=== PATIENT | female | born 1945 | race Caucasian/White ===

== ENCOUNTER 2017-11-01 10:33 | Emergency (ER) | payer MEDICARE, OTHER ==
[~2017-11-01] VITALS: Ht 149.9 cm; Wt 70.0 kg
[~2017-11-01 10:33] MED LIST: APIX5TAB PO; FOLI1TAB PO; FURO1TAB93 PO; ISOS30 PO; LEVO25TA36 PO; METO25CR PO; MULT1TAB46 PO; POTA-243 PO; PRAV40TA PO; PRED20 PO; RANI300T PO; REST0.05 EACH EYE; TELM5TAB PO
[2017-11-01 10:35] VITALS: BP 154/86; PULSE 71; RESP 16; TEMP 98.4; O2SAT 96
[2017-11-01] MEDS ORDERED: POTA-163 PO (10:58)
[2017-11-01] MEDS ORDERED: CALC1TAB87 PO (10:58)
[2017-11-01] MEDS ORDERED: PRAV20TA2 PO (10:58)
[2017-11-01] MEDS ORDERED: LEVO25TA4 PO (10:58)
[2017-11-01] MEDS ORDERED: TRAZ50TA12 PO (10:58)
[2017-11-01] MEDS ORDERED: METO25TA3 PO (10:58)
[2017-11-01] MEDS ORDERED: APIX5TAB PO (10:58)
[2017-11-01] MEDS ORDERED: RANI150T PO (10:58)
[2017-11-01] MEDS ORDERED: [UNRECOGNIZED DRUG - OTHER] PO (10:58)
[2017-11-01] MEDS ORDERED: TORS20TA PO (10:58)
--- NOTE | 2017-11-01 11:17 | PD ---
HPI Chief Complaint: Fall Time Seen by Provider: 11:01 Travel History International Travel<30 days: No Contact w/Intl Traveler<30days: No Traveled to known affect area: No History of Present Illness HPI This 72-year-old female had a fall around 6:00 last night. She fell off the second wrong of a kitchen ladder and hit the right side of her head and shoulder. She doesn't think she had loss of consciousness but she is not sure. She has been told she may have von Willebrand's disease. She has noticed extensive bruising on the right side of her head an she is also having pain in the area of the right trapezius and the right shoulder. PFSH Past Medical History Anemia: Yes (AUTOIMMUNE HEMOLYTIC) Asthma: No Atrial Fibrillation: Yes Autoimmune Disease: Yes Anxiety: Yes Depression: No Heart Rhythm Problems: Yes (HEART PALPATIONS) Cancer: No Cardiovascular Problems: Yes High Cholesterol: Yes Chest Pain: No COPD: Yes Cerebrovascular Accident: No Diabetes: No Diminished Hearing: No Gastrointestinal Disorders: Yes (moderate level of GERD) GERD: Yes Genitourinary: Yes Headaches: No Hypertension: Yes Immune Disorder: Yes Implanted Vascular Access Dvce: No Kidney Stones: No Musculoskeletal: Yes Neurologic: Yes Psychiatric: Yes Reproductive: No Respiratory: Yes Migraines: Yes (years ago, no long have) Renal Failure: No Seizures: No Sickle Cell Disease: No Sleep Apnea: Yes (sleep with CPAP) Thyroid Disease: Yes Ulcer: No ?: Not Past Surgical History Abdominal Surgery: No AICD: No Arteriovenous Shunt: No Cardiac Surgery: No Ear Surgery: No Endocrine Surgery: No Eye Surgery: No Genitourinary Surgery: No Gynecologic Surgery: Yes (hysto) Hysterectomy: Yes Insulin Pump: No Joint Replacement: No Neurologic Surgery: No Oral Surgery: No Pacemaker: No Thoracic Surgery: No Other Surgery: Yes Social History Alcohol Use: Yes (DAILY) Tobacco Use: No Substance Use: No Allergies-Medications (Allergen,Severity, Reaction): Coded Allergies: codeine (Unverified Allergy, Severe, HIVES, 11/01/17) hydrocodone (Unverified Allergy, Severe, Itching, 11/01/17) propafenone (Unverified Allergy, Unknown, DOESN'T REMEMBER, 11/01/17) propranolol (Unverified Allergy, Unknown, DOESN'T REMEMBER, 11/01/17) furosemide (Unverified Adverse Reaction, Severe, Cramping, 11/01/17) Reported Meds & Prescriptions Reported Meds & Active Scripts Active Reported Trazodone (Trazodone HCl) 50 Mg Tab 50 Mg PO HS Pravastatin 20 Mg Tab 20 Mg PO DAILY Ranitidine (Ranitidine HCl) 150 Mg Tab 150 Mg PO DAILY 5-Hydroxytryptophan 100 Mg Cap 100 Mg PO BID Eliquis (Apixaban) 5 Mg Tab 5 Mg PO BID Calcium 600 with Vitamin D (Calcium Carbonate-Cholecalciferol) 600-400 mg-Unit Tab 1 Tab PO DAILY Potassium Chloride ER (Potassium Chloride) 20 Meq Tab 20 Meq PO DAILY Torsemide 20 Mg Tab 20 Mg PO BID Metoprolol Tartrate 25 Mg Tab 25 Mg PO DAILY Levothyroxine (Levothyroxine Sodium) 25 Mcg Tab 25 Mcg PO DAILY Review of Systems General / Constitutional: No: Fever, Chills Eyes: No: Diploplia, Blurred Vision HENT: No: Headaches, Vertigo Cardiovascular: No: Chest Pain or Discomfort, Palpitations Respiratory: No: Cough, Shortness of Breath Gastrointestinal: No: Nausea, Vomiting Genitourinary: No: Urgency Musculoskeletal: Positive: Myalgias Endocrine: No: Heat Intolerance, Cold Intolerance Hematologic/Lymphatic: Positive: Easy Bruising Physical Exam Narrative GENERAL: Well-developed female SKIN: Focused skin assessment warm/dry. HEAD: . Normocephalic. His extensive ecchymosis on the right side of the forehead EYES: Pupils equal and round. No scleral icterus. No injection or drainage. There is a right periorbital hematoma and bruising in the area of the zygoma on the right. She has some tenderness to palpation of the zygomatic arch and mandibular condyle on the right ENT: No nasal bleeding or discharge. Mucous membranes pink and moist. NECK: Trachea midline. No JVD. CARDIOVASCULAR: Regular rate and rhythm. No murmur appreciated. RESPIRATORY: No accessory muscle use. Clear to auscultation. Breath sounds equal bilaterally. There is some tenderness in the area of the right trapezius muscle and also the right distal clavicle and acromioclavicular joint GASTROINTESTINAL: Abdomen soft, non-tender, nondistended. Hepatic and splenic margins not palpable. MUSCULOSKELETAL: No obvious deformities. No clubbing. No cyanosis. No edema. NEUROLOGICAL: Awake and alert. No obvious cranial nerve deficits. Motor grossly within normal limits. Normal speech. PSYCHIATRIC: Appropriate mood and affect; insight and judgment normal. Data Data Last Documented VS Vital Signs Date Time Temp Pulse Resp B/P (MAP) Pulse Ox O2 Delivery O2 Flow Rate FiO2 11/01/17 10:35 98.4 71 16 154/86 (108) 96 Orders Orders Shoulder, Complete (>2vws) (11/01/17 11:10) Chest, Single Ap (11/01/17 11:10) Ct Brain W/O Iv Contrast(Rout) (11/01/17 11:10) Ct Cerv Spine W/O Contrast (11/01/17 11:10) Ct Facial Bones W/O Iv Cont (11/01/17 11:10) MDM Medical Decision Making Medical Screen Exam Complete: Yes Emergency Medical Condition: Yes Medical Record Reviewed: Yes Differential Diagnosis Differential includes fractured shoulder, fractured clavicle, contusion, fractured mandible, fractured zygoma, intracranial hemorrhage Narrative Course Plain x-ray shows fracture of the distal portion of the right clavicle. It is noted that there is a focal radiolucency and is recommended that pathologic fracture needs to be excluded. Chest x-ray is negative. CT scans of the head and facial bones and cervical spine are negative for acute fracture. Patient is stable for discharge Diagnosis Primary Impression: Fx clavicle Qualified Codes: S42.034A - Nondisplaced fracture of lateral end of right clavicle, initial encounter for closed fracture Additional Instructions: Follow-up with your own medical doctor regarding fractured clavicle Disposition: 01 DISCHARGE HOME Condition: Stable Christian Mesa MD Nov 01, 2017 11:17
--- NOTE | 2017-11-01 12:02 | RADRPT ---
EXAM DATE/TIME: 11/01/2017 11:27 [facility] COMPARISON: CHEST SINGLE AP, June 17, 2016, 13:07. INDICATIONS : Short of breath MEDICAL HISTORY : Gastroesophageal reflux disease. Cardiovascular disease SURGICAL HISTORY : None. ENCOUNTER: Initial ACUITY: 1 day PAIN SCORE: 0/10 LOCATION: Bilateral chest FINDINGS: A single view of the chest demonstrates the lungs to be symmetrically aerated without evidence of mas s, infiltrate or effusion. The cardiomediastinal contours are unremarkable. Osseous structures are intact. CONCLUSION: No acute disease. Rodrigo Chandler MD on November 01, 2017 at 12:00 Board Certified Radiologist. This report was verified electronically.
--- NOTE | 2017-11-01 12:06 | RADRPT ---
EXAM DATE/TIME: 11/01/2017 11:27 [facility] COMPARISON: No previous studies available for comparison. INDICATIONS : Right shoulder pain MEDICAL HISTORY : Gastroesophageal reflux disease. Cardiovascular disease SURGICAL HISTORY : None. ENCOUNTER: Initial ACUITY: 1 day PAIN SCORE: 5/10 LOCATION: Right Shoulder FINDINGS: Multiple view examination of the right shoulder demonstrates significant focal radiolucency in the la teral clavicle with evidence of focal erosion along the superior cortical margin. The glenohumeral joint is intact without evidence of fracture or dislocation. Adjacent ribs appear in tact. CONCLUSION: Focal radiolucency with cortical disruption involving the lateral right clavicle. Pathologic fracture needs to be excluded. Rodrigo Chandler MD on November 01, 2017 at 12:02 Board Certified Radiologist. This report was verified electronically.
--- NOTE | 2017-11-01 12:38 | RADRPT ---
EXAM DATE/TIME: 11/01/2017 12:14 [facility] COMPARISON: CT FACIAL BONES W/O CONTRAST, November 01, 2017, 12:14. INDICATIONS : Tripped and fell last night. Right facial pain and bruising. RADIATION DOSE: 56.99 CTDIvol (mGy) MEDICAL HISTORY : Hypertension. Chronic obstructive pulmonary disease. Gastroesophageal reflux disease.Anticoagulant th erapy. SURGICAL HISTORY : Hysterectomy. ENCOUNTER: Initial ACUITY: 2 days PAIN SCALE: 6/10 LOCATION: Right cranial TECHNIQUE: Multiple contiguous axial images were obtained of the head. Using automated exposure control and adj ustment of the mA and/or kV according to patient size, radiation dose was kept as low as reasonably a chievable to obtain optimal diagnostic quality images. DICOM format image data is available electro nically for review and comparison. FINDINGS: CEREBRUM: The ventricles are normal for age. No evidence of midline shift, mass lesion, hemorrhage or acute in farction. No extra-axial fluid collections are seen. POSTERIOR FOSSA: The cerebellum and brainstem are intact. The 4th ventricle is midline. The cerebellopontine angle i s unremarkable. EXTRACRANIAL: The visualized portion of the orbits is intact. Mild subgaleal hematoma is noted involving the right frontoparietal region. SKULL: The calvaria is intact. No evidence of skull fracture. CONCLUSION: 1. No acute intracranial abnormality. 2. Mild subgaleal hematoma involving the right frontoparietal region. Trevon Grady MD on November 01, 2017 at 12:34 Board Certified Radiologist. This report was verified electronically.
--- NOTE | 2017-11-01 12:45 | RADRPT ---
EXAM DATE/TIME: 11/01/2017 12:14 [facility] COMPARISON: No previous studies available for comparison. INDICATIONS : Tripped and fell last night. Right sided pain. RADIATION DOSE: 26.61 CTDIvol (mGy) MEDICAL HISTORY : Hypertension. Chronic obstructive pulmonary disease. Gastroesophageal reflux disease. SURGICAL HISTORY : Hysterectomy. ENCOUNTER: Initial ACUITY: 2 days PAIN SCALE: 7/10 LOCATION: Right neck TECHNIQUE: Volumetric scanning of the cervical spine was performed. Multiplanar reconstructions in the sagittal, coronal and oblique axial planes were performed. Using automated exposure control and adjustment o f the mA and/or kV according to patient size, radiation dose was kept as low as reasonably achievable to obtain optimal diagnostic quality images. DICOM format image data is available electronically f or review and comparison. FINDINGS: There is no acute fracture or prevertebral soft tissue swelling. Diffuse cervical spondylosis is note d at all levels. Minimal spinal stenosis is noted at C5-6. Moderate bilateral neural foraminal narrow ing is noted at C4-5, C5-6 and C6-7. The bony relationship in alignment between C1 and C2 is well loren ntained. CONCLUSION: 1. No acute fracture or prevertebral soft tissue swelling. 2. Minimal spinal stenosis at C5-6. 3. Moderate bilateral foraminal narrowing at C4-5 and C5-6 and C6-7. 4. Diffuse cervical spondylosis. Trevon Grady MD on November 01, 2017 at 12:38 Board Certified Radiologist. This report was verified electronically.
--- NOTE | 2017-11-01 12:55 | RADRPT ---
EXAM DATE/TIME: 11/01/2017 12:14 [facility] COMPARISON: No previous studies available for comparison. INDICATIONS : Tripped and fell last night. Right facial pain and bruising. RADIATION DOSE: 25.68 CTDIvol (mGy) MEDICAL HISTORY : Hypertension. Chronic obstructive pulmonary disease. Gastroesophageal reflux disease. SURGICAL HISTORY : Hysterectomy. ENCOUNTER: Initial ACUITY: 2 days PAIN SCORE: 7/10 LOCATION: Right facial TECHNIQUE: Volumetric scanning of the facial bones was performed. Using automated exposure control and adjustme nt of the mA and/or kV according to patient size, radiation dose was kept as low as reasonably achiev able to obtain optimal diagnostic quality images. DICOM format image data is available [employer] y for review and comparison. FINDINGS: ORBITS: The orbital and infraorbital osseous structures are intact. The retroconal structures have a normal configuration. No radiopaque foreign bodies are seen. NASAL BONE: The nasal bone and maxillary spine are intact ZYGOMATIC ARCHES: Symmetric without evidence of fracture. Mild soft tissue swelling is noted overlying the right zygoma tic arch and zygoma. SINUSES: Mild mucosal thickening is noted within the left maxillary sinus. The ethmoid and frontal sinuses are intact. No air-fluid levels seen. NASAL CAVITY: Nasoseptal deviation to the left is noted. The lacrimal ducts are intact. SOFT TISSUES: No radiopaque foreign bodies seen. Mild soft tissue swelling is noted involving the upper right cheek . INTRACRANIAL: No intracranial air seen. CRIBIFORM PLATE: Grossly intact. CONCLUSION: 1. No acute facial bone fracture. 2. Nasal septal deviation to the left. 3. Mild mucosal thickening involving the left maxillary sinus. 4. Mild soft tissue swelling overlying the right zygoma and zygomatic arch. Trevon Grady MD on November 01, 2017 at 12:51 Board Certified Radiologist. This report was verified electronically.
[2017-11-01 13:36] VITALS: BP 110/77; PULSE 66; RESP 16; TEMP 98.3
== END 2017-11-01 14:12 | disposition home or self-care (01) ==
LOC: PHED 10:33
DX: S42.034A Nondisplaced fracture of lateral end of right clavicle, initial encounter for closed fracture (principal); E78.00 Pure hypercholesterolemia, unspecified; I10 Essential (primary) hypertension; I48.91 Unspecified atrial fibrillation; W11.XXXA Fall on and from ladder, initial encounter; Z79.01 Long term (current) use of anticoagulants
CPT/HCPCS: 70450; 70486; 71010; 72125; 73030; 99285

== ENCOUNTER 2018-04-16 12:55 | Emergency (ER) | payer MEDICARE, OTHER ==
[~2018-04-16] VITALS: Ht 162.6 cm; Wt 64.0 kg
[~2018-04-16 12:55] MED LIST changes: +CALC1TAB87 PO; -FOLI1TAB PO; -FURO1TAB93 PO; -ISOS30 PO; -LEVO25TA36 PO; +LEVO25TA4 PO; -METO25CR PO; +METO25TA3 PO; -MULT1TAB46 PO; +POTA-163 PO; -POTA-243 PO; +PRAV20TA2 PO; -PRAV40TA PO; -PRED20 PO; +RANI150T PO; -RANI300T PO; -REST0.05 EACH EYE; -TELM5TAB PO; +TORS20TA PO; +TRAZ50TA12 PO; +[UNRECOGNIZED DRUG - OTHER] PO
[2018-04-16] MEDS ORDERED: SODIUM CHLORIDE 0.9% FLUSH 10 ML FLUSH IVF PRN (13:00)
[2018-04-16 13:02] VITALS: BP 105/55; PULSE 62; RESP 19; TEMP 98.7; O2SAT 94
[2018-04-16 13:15] VITALS: O2SAT 95
[2018-04-16] MEDS ORDERED: REST0.05 EACH EYE (13:17)
[2018-04-16] MEDS ORDERED: METO1TAB42 PO (13:17)
[2018-04-16] MEDS ORDERED: RANI300T PO (13:17)
[2018-04-16] MEDS ORDERED: NAPR220C22 PO (13:17)
[2018-04-16 13:34] LABS: AUTOMATED NEUTROPHIL # 16.1 TH/MM3 (1.8-7.7); BASOPHIL # 0.1 TH/MM3 (0-0.2); BASOPHIL % 0.5 % (0.0-2.0); EOSINOPHIL # 0.1 TH/MM3 (0-0.4); EOSINOPHIL % 0.3 % (0.0-4.0); HEMATOCRIT 37.2 % (35.0-46.0); HEMOGLOBIN 12.4 GM/DL (11.6-15.3); LYMPH % 2.8 % (9.0-44.0); LYMPHOCYTE # 0.5 TH/MM3 (1.0-4.8); MEAN CELL VOLUME 92.6 FL (80.0-100.0); MEAN CORPUSCULAR HGB CONC 33.4 % (32.0-36.0); MEAN PLATELET VOLUME 6.7 FL (7.0-11.0); MONO % 2.1 % (0.0-8.0); MONOCYTE # 0.4 TH/MM3 (0-0.9); NEUT % 94.3 % (16.0-70.0); PLATELET COUNT 317 TH/MM3 (150-450); RED BLOOD COUNT 4.02 MIL/MM3 (4.00-5.30); RED CELL DISTRIBUTION WIDTH 13.7 % (11.6-17.2); WHITE BLOOD COUNT 17.1 TH/MM3 (4.0-11.0)
[2018-04-16 13:43] LABS: INTERNATIONAL NORMALIZED RATIO 1.3 RATIO; PROTHROMBIN TIME - PATIENT 12.9 SEC (9.8-11.6)
[2018-04-16 13:53] LABS: ALBUMIN 3.1 GM/DL (3.4-5.0); ALT (GPT) 56 U/L (10-53); AST (GOT) 49 U/L (15-37); BICARBONATE 24.9 MEQ/L (21.0-32.0); BLOOD UREA NITROGEN 11 MG/DL (7-18); CHLORIDE 101 MEQ/L (98-107); CREATININE 0.68 MG/DL (0.50-1.00); GLOMERULAR FILTRATION RATE 85 ML/MIN (>89); GLUCOSE,RANDOM 91 MG/DL (74-106); MAGNESIUM 1.8 MG/DL (1.5-2.5); SODIUM (NA) 138 MEQ/L (136-145)
[2018-04-16 13:57] LABS: ALKALINE PHOSPHATASE 482 U/L (45-117); TOTAL BILIRUBIN ADULT 0.5 MG/DL (0.2-1.0); TOTAL PROTEIN 6.3 GM/DL (6.4-8.2); TROPONIN I LESS THAN 0.02 NG/ML (0.02-0.05)
--- NOTE | 2018-04-16 14:08 | RADRPT ---
EXAM DATE: 04/16/2018 1:58 PM EDT AGE/SEX: 72 years / Female INDICATIONS: Chest pain. CLINICAL DATA: This is the patient's initial encounter. Patient reports that signs and symptoms have been present for 1 day and indicates a pain score of 0/10. MEDICAL/SURGICAL HISTORY: Gastroesophageal reflux disease. Cardiovascular disease. None. COMPARISON: [facility], CHEST SINGLE AP, 11/01/2017. . FINDINGS: PA and lateral views of the chest demonstrate the lungs to be aerated without evidence of mass, infi ltrate or effusion. There is persistent stable elevation of the right hemidiaphragm. The cardiomedias tinal contours are unremarkable and stable. There are degenerative changes involving the thoracic spi ne. There is chronic appearing loss of height of several vertebral bodies.. No significant changes wi th the appearance of the heart or lungs compared to the prior study.. CONCLUSION: No acute intrathoracic disease. Stable examination. Electronically signed by: Miko Gabriel MD 04/16/2018 2:07 PM EDT
--- NOTE | 2018-04-16 14:10 | PD ---
HPI Chief Complaint: Cardiac Complaint Time Seen by Provider: 12:58 Travel History International Travel<30 days: No Contact w/Intl Traveler<30days: No Traveled to known affect area: No History of Present Illness HPI The patient is a 72-year-old female who presents to the emergency department via EMS for atrial fibrillation with RVR. The patient has a history of paroxysmal atrial fibrillation with RVR and is currently on metoprolol as well as Eliquis. The patient is followed by her power line installer and repairer, Dr. Lindquist. The patient was at home earlier today when she developed atrial fibrillation with RVR. The patient felt like her heart was racing, developed some sub- sternal chest discomfort which radiated to the neck and right arm. She states these are her typical symptoms when she has A. fib with RVR. The patient states she has had a nuclear medicine stress test in the past as well as an echocardiogram in the past. 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 The patient was administered Cardizem 20 mg and she will be by EMS prior to arrival and converted to a sinus rhythm. The patient is currently asymptomatic and denies any chest pain or shortness of breath upon arrival. She denies any associated nausea, vomiting, or diaphoresis. Symptoms are moderate. PFSH Past Medical History Hx Anticoagulant Therapy: Yes (ELIQUIS) Anemia: Yes (AUTOIMMUNE HEMOLYTIC) Asthma: No Atrial Fibrillation: Yes Autoimmune Disease: Yes Anxiety: Yes Depression: No Heart Rhythm Problems: Yes (HEART PALPATIONS) Cancer: No Cardiovascular Problems: Yes (AFIB) High Cholesterol: Yes Chest Pain: No COPD: Yes Cerebrovascular Accident: No Diabetes: No Diminished Hearing: No Gastrointestinal Disorders: Yes (moderate level of GERD) GERD: Yes Genitourinary: Yes Headaches: No Hypertension: Yes Immune Disorder: Yes Implanted Vascular Access Dvce: No Kidney Stones: No Musculoskeletal: Yes Neurologic: Yes Psychiatric: Yes Reproductive: No Respiratory: Yes (CPAP) Migraines: Yes Renal Failure: No Seizures: No Sickle Cell Disease: No Sleep Apnea: Yes (sleep with CPAP) Thyroid Disease: Yes Ulcer: No ?: Not Past Surgical History Abdominal Surgery: No AICD: No Arteriovenous Shunt: No Cardiac Surgery: No Ear Surgery: No Endocrine Surgery: No Eye Surgery: Yes Genitourinary Surgery: No Gynecologic Surgery: Yes (hysto) Hysterectomy: Yes (PARTIAL) Insulin Pump: No Joint Replacement: No Neurologic Surgery: No Oral Surgery: No Pacemaker: No Thoracic Surgery: No Other Surgery: Yes Social History Alcohol Use: Yes (DAILY) Tobacco Use: No Substance Use: No Allergies-Medications (Allergen,Severity, Reaction): Coded Allergies: codeine (Unverified Allergy, Severe, HIVES, 04/16/18) hydrocodone (Unverified Allergy, Severe, Itching, 04/16/18) propafenone (Unverified Allergy, Unknown, DOESN'T REMEMBER, 04/16/18) propranolol (Unverified Allergy, Unknown, DOESN'T REMEMBER, 04/16/18) furosemide (Unverified Adverse Reaction, Severe, Cramping, 04/16/18) Reported Meds & Prescriptions Reported Meds & Active Scripts Active Reported Aleve (Naproxen Sodium) 220 Mg Capsule 1-2 Tab PO BID PRN Restasis Opth (Cyclosporine Opth) 0.05% Emul 1 Drop EACH EYE BID Ranitidine (Ranitidine HCl) 300 Mg Tab 300 Mg PO HS Metoprolol Succinate ER 24 HR (Metoprolol Succinate) 25 Mg Tab 25 Mg PO DAILY Trazodone (Trazodone HCl) 50 Mg Tab 50 Mg PO HS Pravastatin 20 Mg Tab 20 Mg PO DAILY 5-Hydroxytryptophan 100 Mg Cap 100 Mg PO BID Eliquis (Apixaban) 5 Mg Tab 5 Mg PO BID Calcium 600 with Vitamin D (Calcium Carbonate-Cholecalciferol) 600-400 mg-Unit Tab 1 Tab PO DAILY Potassium Chloride ER (Potassium Chloride) 20 Meq Tab 20 Meq PO DAILY Torsemide 20 Mg Tab 20 Mg PO BID Levothyroxine (Levothyroxine Sodium) 25 Mcg Tab 25 Mcg PO DAILY Review of Systems Except as stated in HPI: all other systems reviewed are Neg General / Constitutional: No: Fever Cardiovascular: Positive: Chest Pain or Discomfort, Palpitations, Irregular Rhythm, Tachycardia, No: Diaphoresis Respiratory: No: Shortness of Breath Gastrointestinal: No: Nausea, Vomiting, Abdominal Pain Musculoskeletal: No: Weakness Neurologic: No: Dizziness Physical Exam Narrative GENERAL: Awake, alert, very pleasant 72-year-old female who appears her stated age and is in no acute respiratory distress. SKIN: Focused skin assessment warm/dry. HEAD: Atraumatic. Normocephalic. EYES: No injection or drainage. ENT: No nasal bleeding or discharge. Mucous membranes pink and moist. NECK: Trachea midline. No JVD. CARDIOVASCULAR: Regular rate and rhythm. No murmur appreciated. Heart rate in the 60s. RESPIRATORY: No accessory muscle use. Clear to auscultation. Breath sounds equal bilaterally. GASTROINTESTINAL: Abdomen soft, non-tender, nondistended. MUSCULOSKELETAL: No obvious deformities. No clubbing. No cyanosis. No edema. NEUROLOGICAL: Awake and alert. No obvious cranial nerve deficits. Motor grossly within normal limits. Normal speech. Nonfocal. Oriented 4. PSYCHIATRIC: Appropriate mood and affect; insight and judgment normal. Data Data Last Documented VS Vital Signs Date Time Temp Pulse Resp B/P (MAP) Pulse Ox O2 Delivery O2 Flow Rate FiO2 04/16/18 13:15 95 Nasal Cannula 2.00 04/16/18 13:02 98.7 62 19 105/55 (72) Orders Orders Electrocardiogram (04/16/18 12:58) B-Type Natriuretic Peptide (04/16/18 12:58) Ckmb (Isoenzyme) Profile (04/16/18 12:58) Complete Blood Count With Diff (04/16/18 12:58) Comprehensive Metabolic Panel (04/16/18 12:58) Magnesium (Mg) (04/16/18 12:58) Prothrombin Time / Inr (Pt) (04/16/18 12:58) Act Partial Throm Time (Ptt) (04/16/18 12:58) Troponin I (04/16/18 12:58) Ecg Monitoring (04/16/18 12:58) Bilateral Bp Monitoring (04/16/18 12:58) Iv Access Insert/Monitor (04/16/18 12:58) Oximetry (04/16/18 12:58) Oxygen Administration (04/16/18 12:58) Sodium Chloride 0.9% Flush (Ns Flush) (04/16/18 13:00) Chest, Pa & Lat (04/16/18 12:58) Potassium Chloride (Kcl) (04/16/18 14:30) Ed Discharge Order (04/16/18 15:23) Labs Laboratory Tests Test 04/16/18 13:25 White Blood Count 17.1 TH/MM3 Red Blood Count 4.02 MIL/MM3 Hemoglobin 12.4 GM/DL Hematocrit 37.2 % Mean Corpuscular Volume 92.6 FL Mean Corpuscular Hemoglobin 31.0 PG Mean Corpuscular Hemoglobin Concent 33.4 % Red Cell Distribution Width 13.7 % Platelet Count 317 TH/MM3 Mean Platelet Volume 6.7 FL Neutrophils (%) (Auto) 94.3 % Lymphocytes (%) (Auto) 2.8 % Monocytes (%) (Auto) 2.1 % Eosinophils (%) (Auto) 0.3 % Basophils (%) (Auto) 0.5 % Neutrophils # (Auto) 16.1 TH/MM3 Lymphocytes # (Auto) 0.5 TH/MM3 Monocytes # (Auto) 0.4 TH/MM3 Eosinophils # (Auto) 0.1 TH/MM3 Basophils # (Auto) 0.1 TH/MM3 CBC Comment DIFF FINAL Differential Comment Prothrombin Time 12.9 SEC Prothromb Time International Ratio 1.3 RATIO Activated Partial Thromboplast Time 27.2 SEC Blood Urea Nitrogen 11 MG/DL Creatinine 0.68 MG/DL Random Glucose 91 MG/DL Total Protein 6.3 GM/DL Albumin 3.1 GM/DL Calcium Level 8.0 MG/DL Magnesium Level 1.8 MG/DL Alkaline Phosphatase 482 U/L Aspartate Amino Transf (AST/SGOT) 49 U/L Alanine Aminotransferase (ALT/SGPT) 56 U/L Total Bilirubin 0.5 MG/DL Sodium Level 138 MEQ/L Potassium Level 3.2 MEQ/L Chloride Level 101 MEQ/L Carbon Dioxide Level 24.9 MEQ/L Anion Gap 12 MEQ/L Estimat Glomerular Filtration Rate 85 ML/MIN Total Creatine Kinase 25 U/L Troponin I LESS THAN 0.02 NG/ML B-Type Natriuretic Peptide 92 PG/ML MDM Medical Decision Making Medical Screen Exam Complete: Yes Emergency Medical Condition: Yes Medical Record Reviewed: Yes Interpretation(s) EKG reveals normal sinus rhythm with a rate of 62. Left axis deviation. Laboratory Tests Test 04/16/18 13:25 White Blood Count 17.1 TH/MM3 Red Blood Count 4.02 MIL/MM3 Hemoglobin 12.4 GM/DL Hematocrit 37.2 % Mean Corpuscular Volume 92.6 FL Mean Corpuscular Hemoglobin 31.0 PG Mean Corpuscular Hemoglobin Concent 33.4 % Red Cell Distribution Width 13.7 % Platelet Count 317 TH/MM3 Mean Platelet Volume 6.7 FL Neutrophils (%) (Auto) 94.3 % Lymphocytes (%) (Auto) 2.8 % Monocytes (%) (Auto) 2.1 % Eosinophils (%) (Auto) 0.3 % Basophils (%) (Auto) 0.5 % Neutrophils # (Auto) 16.1 TH/MM3 Lymphocytes # (Auto) 0.5 TH/MM3 Monocytes # (Auto) 0.4 TH/MM3 Eosinophils # (Auto) 0.1 TH/MM3 Basophils # (Auto) 0.1 TH/MM3 CBC Comment DIFF FINAL Differential Comment Prothrombin Time 12.9 SEC Prothromb Time International Ratio 1.3 RATIO Activated Partial Thromboplast Time 27.2 SEC Blood Urea Nitrogen 11 MG/DL Creatinine 0.68 MG/DL Random Glucose 91 MG/DL Total Protein 6.3 GM/DL Albumin 3.1 GM/DL Calcium Level 8.0 MG/DL Magnesium Level 1.8 MG/DL Alkaline Phosphatase 482 U/L Aspartate Amino Transf (AST/SGOT) 49 U/L Alanine Aminotransferase (ALT/SGPT) 56 U/L Total Bilirubin 0.5 MG/DL Sodium Level 138 MEQ/L Potassium Level 3.2 MEQ/L Chloride Level 101 MEQ/L Carbon Dioxide Level 24.9 MEQ/L Anion Gap 12 MEQ/L Estimat Glomerular Filtration Rate 85 ML/MIN Total Creatine Kinase 25 U/L Troponin I LESS THAN 0.02 NG/ML B-Type Natriuretic Peptide 92 PG/ML Last Impressions Chest X-Ray 04/16/18 1258 Signed Impressions: CONCLUSION: No acute intrathoracic disease. Stable examination. Differential Diagnosis Differential diagnosis includes paroxysmal atrial fibrillation with RVR, arrhythmia, cardiomyopathy, electrolyte abnormality, ischemic heart disease. Narrative Course IV was established, labs are drawn and sent, and the patient was placed on cardiac telemetry monitoring and continuous pulse oximetry monitoring. EKG was ordered and interpreted. Chest x-ray was obtained. Electrolytes were sent to lab. Chest x-ray is unremarkable. LFTs mildly elevated, troponin is less than 0.02. Potassium slightly low, was replaced orally. The patient was in a normal sinus rhythm on EKG, maintain normal sinus rhythm with occasional sinus bradycardia in the 50s. She was asymptomatic. A call was placed in the patient 's power line installer and repairer, however, the on-call physician, Dr. Herrera, was equipment validation engineer. Dr. Herrera did not call back within an hour. The patient was still asymptomatic. Therefore, patient will be discharged home is advised to follow-up with her power line installer and repairer. Return if symptoms worsen or progress. The patient is comfortable with this plan of care and disposition. She will be provided a copy of her EKG, lab results, and chest x-ray results at discharge. Diagnosis Primary Impression: Paroxysmal atrial fibrillation with RVR Patient Instructions: General Instructions Additional Instructions: Please provide the patient a copy of her EKG, chest x-ray results, and lab results at discharge. Follow-up with her power line installer and repairer. Return if symptoms worsen or progress. Med/Other Pt SpecificInfo: No Change to Meds Disposition: 01 DISCHARGE HOME Condition: Stable Rizwan Dang MD April 16, 2018 14:10
[2018-04-16] MEDS ORDERED: POTASSIUM CHLORIDE 20 MEQ CONTROLLED RELEASE TAB PO ONE (14:30)
--- NOTE | 2018-04-17 12:55 | EKG ---
Date Performed: 04/16/2018 Time Performed: 13:08:35 PTAGE: 72 years EKG: Sinus rhythm MARKED LEFT AXIS DEVIATION ABNORMAL ECG Compared to PREVIOUS TRACING , axis somewhat more leftward, otherwise no change. PREVIOUS TRACIN 16.17 DOCTOR: Phil Silva Interpretating Date/Time 04/17/2018 12:53:54
== END 2018-04-16 16:14 | disposition home or self-care (01) ==
LOC: NEPE 12:55
DX: I48.0 Paroxysmal atrial fibrillation (principal); E07.9 Disorder of thyroid, unspecified; E78.00 Pure hypercholesterolemia, unspecified; I10 Essential (primary) hypertension; K21.9 Gastro-esophageal reflux disease without esophagitis; Z79.01 Long term (current) use of anticoagulants
CPT/HCPCS: 71046; 80053; 82550; 83735; 83880; 84484; 85025; 85610; 85730; 93005

== ENCOUNTER 2018-05-15 13:08 | Inpatient (IN) ==
[2018-05-22] MEDS ORDERED: Naloxone Inj 0.4 MG/ML Vial IV.PUSH PRN (00:01)
[2018-05-22] MEDS ORDERED: Acetaminophen 325 MG Tablet PO PRN ×2 (00:01)
[2018-05-22] MEDS ORDERED: Potassium Chlor 40 mEq Premix 40 MEQ/100 ML PIGGYBACK IV.SIG SCH (00:01)
[2018-05-22] MEDS ORDERED: metroNIDAZOLE 500 MG Tablet PO SCH (06:00)
[2018-05-22] MEDS ORDERED: Senna/Docusate Sodium 8.6/50 MG Tablet PO SCH (09:00)
[2018-05-22] MEDS ORDERED: levoFLOXacin 500 MG Tablet PO SCH (09:00)
[2018-05-22] MEDS ORDERED: Torsemide 20 MG Tablet PO SCH (09:00)
[2018-05-22 09:25] LABS: Baso # (Auto) 0.1 th/mm3 (0.0-0.2); Baso % (Auto) 0.6 % (0.0-2.0); Eos # (Auto) 0.1 th/mm3 (0.0-0.4); Hematocrit 31.4 % (35.0-46.0); Hemoglobin 10.5 gm/dL (11.6-15.3); Lymph # (Auto) 1.9 th/mm3 (1.0-4.8); Lymph % (Auto) 20.1 % (9.0-44.0); Mean Corpuscular HGB Conc 33.5 % (32.0-36.0); Mean Corpuscular Hemoglobin 30.8 pg (27.0-34.0); Mean Platelet Volume 6.2 fL (7.0-11.0); Mono # (Auto) 0.8 th/mm3 (0.0-0.9); Neut # (Auto) 6.8 th/mm3 (1.8-7.7); Neut % (Auto) 70.3 % (16.0-70.0); Platelet Count 546 th/mm3 (150-450); Red Blood Count 3.42 mil/mm3 (4.00-5.30); Red Cell Distribution Width 13.2 % (11.6-17.2); White Blood Count 9.7 th/mm3 (4.0-11.0)
--- NOTE | 2018-05-22 10:08 | P.PNFP ---
<Shiloh Nam - Last Filed: 05/22/18 14:17> Subjective Interval history: Subjective Remarks Patient seen and examined this morning. Pt had no acute complaints overnight. She complains of mild abdominal pressure d/t gas. Currently denies fever, chills , SOB, chest pain or calf tenderness. She states that she would like the surgical drain removed and would like to return home as soon as possible. Results - Labs Result diagrams: 05/22/18 07:30 05/22/18 07:30 Abnormal lab results 05/18/18 05/19/18 05/19/18 Range/Units 06:35 03:35 03:35 WBC 20.6 H D (4.0-11.0) TH/MM3 RBC 3.36 L (4.00-5.30) MIL/MM3 Hgb 10.1 L (11.6-15.3) GM/DL Hct 30.8 L (35.0-46.0) % Plt Count (150-450) th/mm3 MPV 6.7 L (7.0-11.0) FL Neut % (Auto) 93.3 H (16.0-70.0) % Lymph % (Auto) 2.9 L (9.0-44.0) % [place] % (Auto) (0.0-8.0) % Neut # (Auto) 19.2 H (1.8-7.7) TH/MM3 Lymph # (Auto) 0.6 L (1.0-4.8) TH/MM3 [place] # (Auto) (0-0.9) TH/MM3 Sodium 135 L (136-145) MEQ/L Potassium 2.9 L* (3.5-5.1) MEQ/L Chloride (98-107) MEQ/L BUN 3 L 3 L (7-18) MG/DL Creatinine 0.49 L 0.47 L (0.50-1.00) MG/DL Random Glucose 111 H 125 H (74-106) MG/DL Calcium 8.1 L 7.6 L (8.5-10.1) MG/DL AST 14 L (15-37) U/L Alkaline Phosphatase 124 H (45-117) U/L Total Protein 4.9 L D (6.4-8.2) GM/DL Albumin 2.0 L (3.4-5.0) GM/DL 05/20/18 05/20/18 05/21/18 Range/Units 06:28 06:28 04:51 WBC 14.5 H (4.0-11.0) TH/MM3 RBC 3.13 L (4.00-5.30) MIL/MM3 Hgb 9.8 L (11.6-15.3) GM/DL Hct 28.8 L (35.0-46.0) % Plt Count (150-450) th/mm3 MPV 6.4 L (7.0-11.0) FL Neut % (Auto) 79.1 H (16.0-70.0) % Lymph % (Auto) (9.0-44.0) % [place] % (Auto) 8.4 H (0.0-8.0) % Neut # (Auto) 11.5 H (1.8-7.7) TH/MM3 Lymph # (Auto) (1.0-4.8) TH/MM3 [place] # (Auto) 1.2 H (0-0.9) TH/MM3 Sodium 132 L (136-145) MEQ/L Potassium 3.1 L D 2.9 L* (3.5-5.1) MEQ/L Chloride 96 L (98-107) MEQ/L BUN 6 L 5 L (7-18) MG/DL Creatinine 0.42 L (0.50-1.00) MG/DL Random Glucose (74-106) MG/DL Calcium 7.5 L 7.2 L* (8.5-10.1) MG/DL AST (15-37) U/L Alkaline Phosphatase (45-117) U/L Total Protein 4.5 L (6.4-8.2) GM/DL Albumin (3.4-5.0) GM/DL 05/21/18 05/21/18 05/21/18 Range/Units 04:51 18:26 18:26 WBC (4.0-11.0) TH/MM3 RBC 2.84 L (4.00-5.30) MIL/MM3 Hgb 8.9 L 11.4 L D (11.6-15.3) GM/DL Hct 26.0 L 33.8 L (35.0-46.0) % Plt Count (150-450) th/mm3 MPV 6.2 L (7.0-11.0) FL Neut % (Auto) 75.4 H (16.0-70.0) % Lymph % (Auto) (9.0-44.0) % [place] % (Auto) 8.8 H (0.0-8.0) % Neut # (Auto) (1.8-7.7) TH/MM3 Lymph # (Auto) (1.0-4.8) TH/MM3 [place] # (Auto) (0-0.9) TH/MM3 Sodium (136-145) MEQ/L Potassium 3.4 L (3.5-5.1) MEQ/L Chloride (98-107) MEQ/L BUN (7-18) MG/DL Creatinine (0.50-1.00) MG/DL Random Glucose (74-106) MG/DL Calcium (8.5-10.1) MG/DL AST (15-37) U/L Alkaline Phosphatase (45-117) U/L Total Protein (6.4-8.2) GM/DL Albumin (3.4-5.0) GM/DL 05/22/18 Range/Units 07:30 WBC (4.0-11.0) TH/MM3 RBC 3.42 L (4.00-5.30) MIL/MM3 Hgb 10.5 L (11.6-15.3) GM/DL Hct 31.4 L (35.0-46.0) % Plt Count 546 H (150-450) th/mm3 MPV 6.2 L (7.0-11.0) FL Neut % (Auto) 70.3 H (16.0-70.0) % Lymph % (Auto) (9.0-44.0) % [place] % (Auto) (0.0-8.0) % Neut # (Auto) (1.8-7.7) TH/MM3 Lymph # (Auto) (1.0-4.8) TH/MM3 [place] # (Auto) (0-0.9) TH/MM3 Sodium (136-145) MEQ/L Potassium (3.5-5.1) MEQ/L Chloride (98-107) MEQ/L BUN (7-18) MG/DL Creatinine (0.50-1.00) MG/DL Random Glucose (74-106) MG/DL Calcium (8.5-10.1) MG/DL AST (15-37) U/L Alkaline Phosphatase (45-117) U/L Total Protein (6.4-8.2) GM/DL Albumin (3.4-5.0) GM/DL Short CBC 05/19/18 05/20/18 05/21/18 Range/Units 03:35 06:28 04:51 WBC 20.6 H D 14.5 H 8.4 (4.0-11.0) TH/MM3 Hgb 10.1 L 9.8 L 8.9 L (11.6-15.3) GM/DL Hct 30.8 L 28.8 L 26.0 L (35.0-46.0) % Plt Count 307 398 389 (150-450) TH/MM3 05/21/18 05/22/18 Range/Units 18:26 07:30 WBC 9.7 (4.0-11.0) TH/MM3 Hgb 11.4 L D 10.5 L (11.6-15.3) GM/DL Hct 33.8 L 31.4 L (35.0-46.0) % Plt Count 546 H (150-450) TH/MM3 BMP 05/18/18 05/18/18 05/19/18 06:35 20:16 03:35 Sodium 137 135 L Potassium 2.9 L* 4.0 D 4.1 Chloride 101 102 Carbon Dioxide 24.9 23.3 BUN 3 L 3 L Creatinine 0.49 L 0.47 L Calcium 8.1 L 7.6 L 05/20/18 05/21/18 05/21/18 06:28 04:51 18:26 Sodium 132 L 137 Potassium 3.1 L D 2.9 L* 3.4 L Chloride 96 L 100 Carbon Dioxide 25.4 28.2 BUN 6 L 5 L Creatinine 0.50 0.42 L Calcium 7.5 L 7.2 L* Liver Function 05/19/18 Range/Units 03:35 Total Bilirubin 0.4 (0.2-1.0) MG/DL AST 14 L (15-37) U/L ALT 10 (10-53) U/L Alkaline Phosphatase 124 H (45-117) U/L Albumin 2.0 L (3.4-5.0) GM/DL - Imaging Abdomen/Pelvis CT (05/15): 6 cm presumed abscess in the central pelvis between the distal sigmoid colon and the bladder with an impression on the bladder. There is an air-fluid level within the bladder which could be related to a colovesical fistula or bladder infection. An additional suspected sigmoid abscess is present measuring about 2.5 cm more proximally. Abscesses probably related to sigmoid diverticulitis or colitis. No bowel obstruction or significant free fluid. No free air. 2.6 cm left adrenal nodule statistically most likely an adenoma. Physical Exam Vital signs: Vital Signs 05/22/18 02:21 05/22/18 04:00 05/22/18 08:00 Temperature 98.0 F 97.6 F 97.9 F Pulse Rate 71 66 69 Respiratory Rate 18 Blood Pressure 112/54 L 133/66 137/65 Pulse Oximetry 96 93 L 94 L Intake & Output 05/21/18 05/22/18 05/22/18 18:59 06:59 18:59 Output Total 805 / 805 Balance -805 / -805 Weight 70 kg Output: Urine 800 / 800 Wound Drainage Right Abdomen - Constitutional no acute distress Comments: Sitting up comfortably in chair watching television - Routine Respiratory Exam Present: CTA bilaterally - Routine Cardiovascular Exam Present: RRR. Absent: murmur - Routine Abdominal Exam Present: soft, normoactive bowel sounds. Absent: tenderness, guarding Comments: Surgical drain on right without erythema, warmth or tenderness. Colostomy bag patent with green and brown stool, no erythema, warmth or tenderness. - Routine Exam Comments: [place] catheter in place draining yellow urine. - Routine Extremities Exam Present: pulses intact. Absent: edema - Routine Skin Exam Present: dry - Routine Neurological Exam Present: alert, oriented X3, normal speech - Urinary Catheter Management Indwelling Urethral Catheter Cath placed during this visit: no Assessment and Plan - Assessment (1) Colonic diverticular abscess Code(s): K57.20 - Diverticulitis of large intestine with perforation and abscess without bleeding Status: Chronic Plan: Patient with colonic abscesses x2 per imaging. Drainage by IR 05/16. Consults: * IR: Uncomplicated CT guided drainage of small proximal perisigmoid abscess . Uncomplicated CT guided drainage of diverticular abscess 05/16. Medications: * Flagyl 500mg PO q8hr. * Levofloxacin 500mg PO daily. * Pain currently controlled with IV Tylenol every 6 hours; plan to transition hydrocodone for pain control in preparation for discharge (noted allergy (hives ) will add on PRN benadryl, but patient tolerated Dilaudid MANAGED SERVICES CONSULTANT well) 05/22: * Drain put out 5ml of sanguinous fluid overnight. No signs of infection at drain site. Patient would like drain taken out prior to discharge. Awaiting surgery consult. * Patient has received 3d of Flagyl and Levofloxacin. Plan to continue PO antibiotics for 7 days following discharge. 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 Exploratory laparotomy, sigmoid colectomy, ligation of a colovesical fistula, descending colon colostomy performed on 05/18. Consults: * General surgery: Performed uncomplicated exploratory laparotomy with sigmoid colectomy, ligation of colovesicular fistula, and colostomy placement on . 05/22: * Patient currently asymptomatic * Recommend outpatient follow up with surgery in 1-2 weeks following discharge. * [place] catheter to remain in place for two weeks. * Last H/H 10.5L, increased from prior (3) Hematuria Code(s): R31.9 - Hematuria, unspecified Status: Acute Plan: On admission, patient with hematuria over 48 hrs. Likely secondary to abscesses and fistula. UTI. Microbiology: * Blood culture: no growth to date. * Urine culture: Klebsiella Oxytoca, pansensitive. * Hemoccult positive. 05/22: * Now resolved, [place] catheter draining light yellow urine. [place] to remain for 2 weeks following discharge, per surgery. (4) Hypokalemia Code(s): E87.6 - Hypokalemia Status: Resolved Plan: Plan: Patient with hypokalemia likely secondary to extraneous losses from abscess with drainage. Patient currently asymptomatic without EKG changes on telemetry. * Magnesium ordered on 05/21 * Repeat potassium with magnesium at 1700 on 05/21 05/22: * Now resolved. Potassium level 4.0 and Magnesium 1.9 on 05/22, within normal limits. (5) Diuresis Code(s): R35.8 - Other polyuria Status: Acute Plan: Patient on home diuresis schedule of Torsemide 20mg twice a day. Patient reports taking Torsemide 40mg once a day at home. Patient refusing Torsemide at admission as she "did not want to get up to go to the bathroom." As [place] is in place, diuresis restarted. Medications: * Lasix 20 mg IV given once 05/19. * Continue home Torsemide 40mg daily. (6) A-fib Code(s): I48.91 - Unspecified atrial fibrillation Status: Chronic Plan: Patient with history of A. fib. Medications: * Resumed home Eliquis 05/20. * Continue home Metoprolol. (7) Nutrition, metabolism, and development symptoms Code(s): R63.8 - Other symptoms and signs concerning food and fluid intake Status: Acute Plan: Nutrition: * Regular diet. Fluid: * Tolerating PO. Electrolyte: * Hypokalemia resolved. (8) DVT prophylaxis Status: Acute Plan: Prophylaxis: * SCDs. * Eliquis - Plan Assessment Patient is a 73 year old female who presented to the [facility] ED for evaluation of abdominal pain and hematuria. CT abdomen in ED showed abscess in central pelvis and sigmoid with possible colovesical fistula. Patient admitted for evaluation and treatment of findings. IR drain for diverticular abscess placed on 05/16. Patient underwent surgery exploratory laparotomy, sigmoid colectomy, ligation of a colovesical fistula and descending colon colostomy on 05/18. Discussed Condition With: Patient Discharge Planning: Patient is stable and ready for discharge with home health pending surgery consult. <Julia Gutierrez R - Last Filed: 05/23/18 08:30> Results - Labs Result diagrams: 05/22/18 07:30 05/22/18 07:30 Abnormal lab results 05/22/18 05/22/18 Range/Units 07:30 07:30 RBC 3.42 L (4.00-5.30) mil/mm3 Hgb 10.5 L (11.6-15.3) gm/dL Hct 31.4 L (35.0-46.0) % Plt Count 546 H (150-450) th/mm3 MPV 6.2 L (7.0-11.0) fL Neut % (Auto) 70.3 H (16.0-70.0) % BUN 4 L (7-18) mg/dL Creatinine 0.42 L (0.50-1.00) mg/dL Calcium 8.0 L (8.5-10.1) mg/dL Short CBC 05/22/18 Range/Units 07:30 WBC 9.7 (4.0-11.0) th/mm3 Hgb 10.5 L (11.6-15.3) gm/dL Hct 31.4 L (35.0-46.0) % Plt Count 546 H (150-450) th/mm3 BMP 05/22/18 07:30 Sodium 138 Potassium 4.0 Chloride 101 Carbon Dioxide 27.1 BUN 4 L Creatinine 0.42 L Calcium 8.0 L Physical Exam Vital signs: Vital Signs 05/22/18 12:00 Temperature 98.0 F Pulse Rate 78 Respiratory Rate 18 Blood Pressure 111/52 L Pulse Oximetry 93 L - Urinary Catheter Management Indwelling Urethral Catheter Cath placed during this visit: no Assessment and Plan - Assessment (1) Colonic diverticular abscess Code(s): K57.20 - Diverticulitis of large intestine with perforation and abscess without bleeding Status: Chronic (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 Status: Acute (3) Hematuria Code(s): R31.9 - Hematuria, unspecified Status: Acute (4) Hypokalemia Code(s): E87.6 - Hypokalemia Status: Resolved (5) Diuresis Code(s): R35.8 - Other polyuria Status: Acute (6) A-fib Code(s): I48.91 - Unspecified atrial fibrillation Status: Chronic (7) Nutrition, metabolism, and development symptoms Code(s): R63.8 - Other symptoms and signs concerning food and fluid intake Status: Acute (8) DVT prophylaxis Status: Acute - Attending Attestation The exam, history, and the medical decision-making described in the above note were completed with the assistance of the resident physician. I reviewed and agree with the findings presented. I attest that I had a [id number] encounter with the patient on the same day, and personally performed and documented my assessment and findings in the medical record. Julia Gutierrez MD
[2018-05-22 11:15] LABS: Anion Gap 10 meq/L (5-15); Blood Urea Nitrogen 4 mg/dL (7-18); Carbon Dioxide 27.1 meq/L (21.0-32.0); Chloride 101 meq/L (98-107); Glomerular Filtration Rate Greater Than 89 mL/min (>89); Glucose,Random 94 mg/dL (74-106); Magnesium 1.9 mg/dL (1.5-2.5); Sodium 138 meq/L (136-145)
--- NOTE | 2018-05-22 11:32 | P.DCO ---
- Home Health Nursing Order: Medical education, Signs/symptoms of disease process, Wound care and dressing changes, Nursing assessment with vital signs, IV medication administration, [place] catheter maintenance - Certification I have seen patient Arabella Vogel on 05/22/18. My clinical findings support the need for the requested home health care services because: colostomy and [place] catheter. Limited mobility due to disease progression, Deconditioned with increased weakness, Limited ability to care for self, Infection with risk of complications I certify that my clinical findings support that this patient is homebound because: Post-op weakness
--- NOTE | 2018-05-22 13:11 | P.PNGS ---
Subjective Patient reports: no new complaints, feels better Physical Exam Vital signs: Vital Signs 05/22/18 02:21 05/22/18 04:00 05/22/18 08:00 Temperature 98.0 F 97.6 F 97.9 F Pulse Rate 71 66 69 Respiratory Rate 18 18 18 Blood Pressure 112/54 L 133/66 137/65 Pulse Oximetry 96 93 L 94 L 05/22/18 12:00 Temperature 98.0 F Pulse Rate 78 Respiratory Rate 18 Blood Pressure 111/52 L Pulse Oximetry 93 L Intake & Output 05/21/18 05/22/18 05/22/18 18:59 06:59 18:59 Output Total 805 / 805 Balance -805 / -805 Weight 70 kg Output: Urine 800 / 800 Wound Drainage 5 / 5 Right Abdomen 5 / 5 - Constitutional no acute distress - Routine Abdominal Exam Present: soft, normoactive bowel sounds Comments: ostomy intact with stool output - Urinary Catheter Management Indwelling Urethral Catheter Cath placed during this visit: no Assessment and Plan - Assessment (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 DC drain, DC HONG, DC fabrizio today with [place]ana.
[2018-05-22] MEDS ORDERED: traZODone 50 MG Tablet PO SCH (21:00)
[2018-05-22] MEDS ORDERED: Famotidine 20 MG Tablet PO SCH (21:00)
--- NOTE | 2018-06-12 10:47 | P.DS ---
<Cecily Almaraz - Last Filed: 06/12/18 10:50> Date of admission: 05/15/18 17:05 Primary care physician: Aysha Hayes MD Attending physician on discharge: Julia Jarvis Brief History from admission: lars is a 73 year old female who presents to the [facility] ED for evaluation of abdominal pain and hematuria. Patient reports worsening abdominal pain and hematuria over the past 48 hours. She describes the pain as a cramping pain across her lower abdomen. She has been unable to eat as eating triggers the cramping. She started to notice red blood in her urine on Wednesday morning at around 2 a.m. 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 She was treated with prednisone for 7 months. During that time, she started to experience lower abdominal cramping and diarrhea. She eliminated entire food groups in an effort to relief her symptoms, however, her symptoms have persisted. The only thing that keep the pain away is not eating. At the beginning of April, she was treated with Cipro and Flagyl x7-10 days for her GI and some (see below) complaints. She felt better for five days and canceled her appointment with GI. Then symptoms returned. Of note, she had a colonoscopy without findings five years ago. In addition to the patient's GI symptoms, she started to experience a "new pain " on top of the cramping pain 5-6 weeks ago. She suspected a UTI due to dysuria. UA in the PCP office was negative but patient was started on Cipro and Flagyl as discussed above. The dysuria subsided. Patient was seen by Dr. Rendon , Uro-Literature Professor, on . UA in the office was negative. He ordered a transvaginal ultrasound, which showed "midline adhesions." When patient called Dr. Rendon's office on Wednesday morning to discuss new-onset hematuria, she was told about US findings and asked to have further evaluation with CT. CT was not completed until arrival in ED. DS: Diagnosis - Discharge Diagnosis (1) Colovesical fistula Status: Acute (2) Hematuria Status: Acute (3) UTI (urinary tract infection) Status: Acute (4) A-fib Status: Chronic DS: Summary Hospital Course: Patient is a 73 year old female who presented to the [facility] ED for evaluation of abdominal pain and hematuria. Patient with colonic abscesses x2 per imaging. Drainage by IR 05/16. Drainage culture revealed pansensitive Klebsiella. She was placed on Flagyl 500mg PO q8hr and Levofloxacin 500mg PO daily. Imaging also revealed a possible colovesical fistula. Exploratory laparotomy, sigmoid colectomy, ligation of a colovesical fistula, descending colon colostomy on . Flores catheter to remain in place for two weeks. Patient was cleared by surgery and discharged to home with home health on 05/22 with po abx as above for 7 more days.. - Time Spent with Patient Total time spent providing and/or coordinating discharge services: Exam Narrative: - Constitutional no acute distress Comments: Sitting up comfortably in chair watching television - Routine Respiratory Exam Present: CTA bilaterally - Routine Cardiovascular Exam Present: RRR. Absent: murmur - Routine Abdominal Exam Present: soft, normoactive bowel sounds. Absent: tenderness, guarding Comments: Surgical drain on right without erythema, warmth or tenderness. Colostomy bag patent with green and brown stool, no erythema, warmth or tenderness. - Routine Exam Comments: Flores catheter in place draining yellow urine. - Routine Extremities Exam Present: pulses intact. Absent: edema - Routine Skin Exam Present: dry - Routine Neurological Exam Present: alert, oriented X3, normal speech - Urinary Catheter Management Indwelling Urethral Catheter Cath placed during this visit: no Results Procedures completed during hospitalization: see above <Julia Jarvis - Last Filed: 09/01/18 15:41> Date of admission: 05/15/18 17:05 Primary care physician: Aysha Hayes MD Anticipated date of discharge: 05/22/18 DS: Diagnosis - Discharge Diagnosis (1) Colonic diverticular abscess Status: Chronic (2) Colovesical fistula Status: Acute (3) Hematuria Status: Acute (4) Diuresis Status: Acute (5) A-fib Status: Chronic (6) Nutrition, metabolism, and development symptoms Status: Acute (7) DVT prophylaxis Status: Acute DS: Summary - Time Spent with Patient Total time spent providing and/or coordinating discharge services: Less than 30 minutes Discharge Plan - Discharge Order Discharge Orders: Discharge Order (Routine); Ordered 05/22/18 Ordered By: Cecily Almaraz General Surgery Clear for Discharge (Routine); Ordered 05/22/18 Ordered By: Rodo Collier - Physicians Team Primary Care Provider: Aysha Hayes Attending Provider: Julia Jarvis Other Providers: Tolu Treadwell MD ; Gilbert Laguerre MD ; [facility], - Rxs /Orders / Referrals /Forms Prescriptions: Continue 5-hydroxytryptophan (5-HTP) 100 mg Capsule 100 mg PO HS apixaban [Eliquis] 5 mg Tablet 5 mg PO BID calcium carbonate-vitamin D3 [Calcium 600 + D(3)] 600 mg(1,500mg) -400 unit Tablet 2 tab PO DAILY cyclosporine 0.05 % Drops 1 drp OPHTHALMIC (EYE) Q12H levothyroxine 25 mcg Tablet 25 mcg PO HS metoprolol succinate 25 mg Tablet Extended Release 24 Hr 25 mg PO DAILY potassium chloride 20 mEq Tablet Extended Release 2 caplet PO DAILY pravastatin 20 mg Tablet 20 mg PO HS ranitidine HCl 300 mg Tablet 300 mg PO HS torsemide 20 mg Tablet 20 mg PO DAILY trazodone 50 mg Tablet 50 mg PO HS Referrals: Aysha Hayes MD [Primary Care Provider] - See Instructions Jeancarlos Paulson MD [Physician] - See Instructions (Follow up in one week) - Discharge Instructions Patient Printed Instructions: Colostomy Care (DC), Flores Catheter Placement and Care (DC), Colostomy Creation (DC)
== END 2018-05-22 15:00 | disposition home health service (06) ==
LOC: UNDODISIN → N07 17:05
PROVIDERS: ADMIT Family Medicine; ATTEND Family Medicine

== ENCOUNTER 2018-08-11 06:09 | Inpatient (IN) ==
[2018-08-11] MEDS ORDERED: Metoprolol Tartrate 25 MG Tablet PO ONE (07:00)
[2018-08-11] MEDS ORDERED: Sodium Chlor 0.9% Inj 500 ML IV.CONT ONE (07:00)
[2018-08-11] MEDS ORDERED: Chlorhexidine Gluconate 2% 1 Pack (2 Cloths) TOPICAL ONE (07:00)
[2018-08-11] MEDS ORDERED: Ropivacaine 0.5% PF Inj 20 ML Vial ONE (07:20)
[2018-08-11] MEDS ORDERED: Ketorolac Inj 30 MG/ML (IVP) Vial IV.PUSH ONE (08:00)
[2018-08-11] MEDS ORDERED: ceFAZolin 2 GM Premix Inj 2 GM/100 ML BAG IV.SIG SCH (08:00)
[2018-08-11] MEDS ORDERED: Lidocaine PF 1% Inj 5 ML Syringe OTHER ONE (08:00)
[2018-08-11] MEDS ORDERED: Bupivacaine/Epinephrine 0.5% Inj 50 ML Vial ONE (08:15)
[2018-08-11] MEDS ORDERED: Bisacodyl 10 MG Supp RECTAL PRN (11:16)
[2018-08-11] MEDS ORDERED: Naloxone Inj 0.4 MG/ML Vial IV.PUSH PRN (11:16)
[2018-08-11] MEDS ORDERED: Promethazine 25 MG Supp RECTAL PRN (11:16)
[2018-08-11] MEDS ORDERED: Post-op Orders (for Pharmacy) OTHER ONE (11:16)
[2018-08-11] MEDS ORDERED: fentaNYL Citrate Inj 100 MCG/2 ML Ampul ONE ×2 (11:19→11:20)
[2018-08-11] MEDS: Ketorolac Inj 30 MG/ML (IVP) Vial IV.PUSH PRN ×2 (17:34→23:42)
[2018-08-11] MEDS: traZODone 50 MG Tablet PO SCH (20:37)
[2018-08-11] MEDS: Famotidine 20 MG Tablet PO SCH (20:37)
[2018-08-11] MEDS: Senna/Docusate Sodium 8.6/50 MG Tablet PO SCH (20:37)
[2018-08-12 05:11] LABS: Hematocrit 24.8 % (35.0-46.0); Hemoglobin 8.3 gm/dL (11.6-15.3); Mean Corpuscular HGB Conc 33.4 % (32.0-36.0); Mean Corpuscular Hemoglobin 28.8 pg (27.0-34.0); Platelet Count 264 th/mm3 (150-450); Red Blood Count 2.88 mil/mm3 (4.00-5.30); White Blood Count 9.5 th/mm3 (4.0-11.0)
[2018-08-12 05:29] LABS: Anion Gap 10 meq/L (5-15); Blood Urea Nitrogen 5 mg/dL (7-18); Calcium 7.7 mg/dL (8.5-10.1); Carbon Dioxide 24.5 meq/L (21.0-32.0); Chloride 103 meq/L (98-107); Glomerular Filtration Rate Greater Than 89 mL/min (>89); Glucose,Random 109 mg/dL (74-106); Potassium 3.9 meq/L (3.5-5.1); Sodium 137 meq/L (136-145)
[2018-08-12] MEDS: Ketorolac Inj 30 MG/ML (IVP) Vial IV.PUSH PRN ×4 (05:31→23:36)
[2018-08-12] MEDS ORDERED: CYCLOSPORINE EACH EYE SCH (09:00)
[2018-08-12] MEDS: Famotidine 20 MG Tablet PO SCH ×2 (10:01→20:54)
[2018-08-12] MEDS: Senna/Docusate Sodium 8.6/50 MG Tablet PO SCH ×2 (10:01→20:54)
[2018-08-12] MEDS: Torsemide 20 MG Tablet PO SCH (10:01)
[2018-08-12] MEDS: traZODone 50 MG Tablet PO SCH (20:54)
[2018-08-13 04:19] LABS: Baso % (Auto) 0.6 % (0.0-2.0); Eos # (Auto) 0.1 th/mm3 (0.0-0.4); Eos % (Auto) 1.1 % (0.0-4.0); Hematocrit 21.9 % (35.0-46.0); Hemoglobin 7.3 gm/dL (11.6-15.3); Lymph # (Auto) 1.3 th/mm3 (1.0-4.8); Lymph % (Auto) 17.2 % (9.0-44.0); Mean Corpuscular HGB Conc 33.3 % (32.0-36.0); Mean Corpuscular Hemoglobin 28.7 pg (27.0-34.0); Mean Corpuscular Volume 86.1 fL (80.0-100.0); Mean Platelet Volume 6.7 fL (7.0-11.0); Mono # (Auto) 0.7 th/mm3 (0.0-0.9); Mono % (Auto) 8.8 % (0.0-8.0); Neut # (Auto) 5.6 th/mm3 (1.8-7.7); Neut % (Auto) 72.3 % (16.0-70.0); Platelet Count 233 th/mm3 (150-450); Red Blood Count 2.55 mil/mm3 (4.00-5.30); Red Cell Distribution Width 14.4 % (11.6-17.2); White Blood Count 7.7 th/mm3 (4.0-11.0)
[2018-08-13] MEDS: Ketorolac Inj 30 MG/ML (IVP) Vial IV.PUSH PRN ×2 (06:24→18:06)
[2018-08-13] MEDS: Famotidine 20 MG Tablet PO SCH ×2 (09:34→20:24)
[2018-08-13] MEDS: Senna/Docusate Sodium 8.6/50 MG Tablet PO SCH ×2 (09:35→20:25)
[2018-08-13] MEDS: Torsemide 20 MG Tablet PO SCH (09:39)
[2018-08-13 13:08] LABS: Baso % (Auto) 0.5 % (0.0-2.0); Eos # (Auto) 0.1 th/mm3 (0.0-0.4); Eos % (Auto) 1.1 % (0.0-4.0); Hematocrit 28.1 % (35.0-46.0); Hemoglobin 9.2 gm/dL (11.6-15.3); Lymph # (Auto) 1.1 th/mm3 (1.0-4.8); Lymph % (Auto) 12.3 % (9.0-44.0); Mean Corpuscular HGB Conc 32.6 % (32.0-36.0); Mean Corpuscular Hemoglobin 28.5 pg (27.0-34.0); Mean Corpuscular Volume 87.4 fL (80.0-100.0); Mono # (Auto) 0.7 th/mm3 (0.0-0.9); Mono % (Auto) 7.5 % (0.0-8.0); Neut % (Auto) 78.6 % (16.0-70.0); Platelet Count 305 th/mm3 (150-450); Red Blood Count 3.21 mil/mm3 (4.00-5.30); Red Cell Distribution Width 14.5 % (11.6-17.2); White Blood Count 8.9 th/mm3 (4.0-11.0)
[2018-08-13 13:40] LABS: % Iron Saturation 6.5 % (20-50)
[2018-08-13] MEDS: traZODone 50 MG Tablet PO SCH (20:24)
[2018-08-14] MEDS: Ketorolac Inj 30 MG/ML (IVP) Vial IV.PUSH PRN ×2 (04:25→09:47)
[2018-08-14] MEDS: Torsemide 20 MG Tablet PO SCH (08:27)
[2018-08-14] MEDS: Senna/Docusate Sodium 8.6/50 MG Tablet PO SCH (08:27)
[2018-08-14] MEDS: Famotidine 20 MG Tablet PO SCH (08:27)
== END 2018-08-14 13:18 | disposition home or self-care (01) ==
LOC: HSDI 06:09 → N07 15:54
PROVIDERS: ADMIT Surgery Trauma Surgery; ATTEND Surgery Trauma Surgery

== ENCOUNTER 2018-11-01 14:38 | Inpatient (IN) ==
[2018-11-01] MEDS ORDERED: Diatrizoate Meglum/Diatrizoate Sod Liq 9 ML UDC PO ONE (15:45)
--- NOTE | 2018-11-01 15:52 | ED ---
HPI General Chief complaint: Recheck/Abnormal Lab/Rx Stated complaint: Need blood transfusion Time Seen by Provider: 11/01/18 15:39 Source: patient Mode of arrival: ambulatory Limitations: no limitations History of Present Illness HPI narrative: This 73-year-old female was told to come here because of anemia. She has been feeling bad for the past month or so. She has been weak and short of breath. She has been chewing on ice. She has been anemic in the past and thought she may be anemic again. Her doctor did blood work and her hemoglobin was 5.6. She is on Eliquis for atrial fibrillation. 2 years ago she had autoimmune hemolytic anemia secondary to propafenone. She had emergency colostomy in April of this year and had a resection in July of a colovesicular fistula. She saw Dr. Paulson this morning with complaint of some lower abdominal pain and he had ordered an outpatient CT abdomen and pelvis. Related Data Home Medications Medication Instructions Recorded Confirmed 5-hydroxytryptophan (5-HTP) 100 mg PO HS 05/21/18 11/01/18 apixaban [Eliquis] 5 mg PO BID 05/21/18 11/01/18 calcium carbonate-vitamin D3 2 tab PO DAILY 05/21/18 11/01/18 [Calcium 600 + D(3)] cyclosporine 1 drp OPHTHALMIC (EYE) Q12H 05/21/18 11/01/18 levothyroxine 25 mcg PO HS 05/21/18 11/01/18 metoprolol succinate 25 mg PO DAILY 05/21/18 11/01/18 potassium chloride 2 caplet PO DAILY 05/21/18 11/01/18 pravastatin 20 mg PO HS 05/21/18 11/01/18 ranitidine HCl 300 mg PO HS 05/21/18 11/01/18 torsemide 20 mg PO DAILY 05/21/18 11/01/18 trazodone 50 mg PO HS 05/21/18 11/01/18 Allergies Allergy/AdvReac Type Severity Reaction Status Date / Time codeine Allergy Severe HIVES Verified 11/01/18 14:42 hydrocodone Allergy Severe Itching Verified 11/01/18 14:42 lisinopril Allergy Severe Cough Verified 11/01/18 14:42 propafenone Allergy Severe Anaphylaxis Verified 11/01/18 14:42 Opioids - Morphine Analogues AdvReac Severe Hives Verified 11/01/18 14:42 Opioids-Meperidine and AdvReac Severe Hives Verified 11/01/18 14:42 Related banana AdvReac Gastrointestinal Verified 11/01/18 14:42 Upset Review of Systems ROS: all other systems reviewed are negative [facility] Medical History Medical History Anemia (Acute) Congestive heart failure (CHF) (Acute) GERD (gastroesophageal reflux disease) (Acute) High cholesterol (Acute) Hx of diverticulitis of colon (Acute) Hypertension (Acute) Hypothyroidism (Acute) Psoriasis (Acute) Seborrhea (Acute) Sleep apnea with use of continuous positive airway pressure (CPAP) (Acute) Wears glasses (Acute) Surgical History Surgical History Hx of appendectomy (Acute) History of colon resection (Acute) History of partial hysterectomy (Acute) History of tubal ligation (Acute) Hx of blepharoplasty (Acute) Hx of cataract removal with insertion of prosthetic lens (Acute) Family History Family History Father Stroke Mother Stroke Social History Social History Substance History: No History of Abuse Second Hand Smoke Exposure: No Smoking Status: Former smoker Tobacco Type: Cigarettes How Often Do You Have a Drink Containing Alcohol: Monthly or less Recent Travel in [facility] within the Last 8 Weeks: No Recent Out of Country Travel within the Last 8 Weeks: No Immunization History Tetanus Immunization: <5 Years Exam Narrative Exam Narrative: GENERAL: Well-developed female, pale conjunctiva SKIN: Focused skin assessment warm/dry. HEAD: Atraumatic. Normocephalic. EYES: Pupils equal and round. No scleral icterus. No injection or drainage. ENT: No nasal bleeding or discharge. Mucous membranes pink and moist. NECK: Trachea midline. No JVD. CARDIOVASCULAR: Irregular rate and rhythm. No murmur appreciated. RESPIRATORY: No accessory muscle use. Clear to auscultation. Breath sounds equal bilaterally. GASTROINTESTINAL: Abdomen soft, mild periumbilical tenderness without guarding or rigidity, nondistended. Hepatic and splenic margins not palpable. Rectal exam there are no masses. Stool is brown but strongly positive for occult blood MUSCULOSKELETAL: No obvious deformities. No clubbing. No cyanosis. No edema. NEUROLOGICAL: Awake and alert. No obvious cranial nerve deficits. Motor grossly within normal limits. Normal speech. PSYCHIATRIC: Appropriate mood and affect; insight and judgment normal. Course Initial Documented Vital Signs Temperature 98.1 F 11/01/18 14:43 Pulse Rate 72 11/01/18 14:43 Respiratory Rate 20 11/01/18 14:43 Blood Pressure 136/63 11/01/18 14:43 Pulse Oximetry 97 11/01/18 14:43 Last Documented Vital Signs Temperature 98.1 F 11/01/18 14:43 Pulse Rate 70 11/01/18 17:22 Respiratory Rate 16 11/01/18 17:22 Blood Pressure 150/77 H 11/01/18 17:22 Pulse Oximetry 97 11/01/18 17:22 Sign Out Sign Out Data: Patient Sign Out occurred on 11/01/18 at 16:15. Patient's care was discussed, and care was transferred from Christian Bains MD to Rizwan Dang MD. Sign Out Comment: Patient presented because of known anemia. She does have stool that is positive for occult blood. Repeat lab work and CT of the abdomen and pelvis are pending Last updated by Christian Bains MD at 11/01/18 15:53 Post-Handoff Eval: The patient is a 73-year-old female was initially evaluated by Dr. Frederick. 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 Meyer. The patient states she was taken off of medications in 2017 and released from the practice as her warm hemolytic autoimmune anemia had resolved. The patient now notes increasing shortness of breath with exertion and fatigue, was noted to have a low hemoglobin and an outpatient basis and was sent to the emergency department. The patient was evaluated by Dr. Frederick and was noted to have no gross blood on rectal exam, however, the guaiac exam was grossly positive. The patient does take Eliquis for her atrial fibrillation and is followed by her cloud security architect, Dr. Lindquist. The patient's hemoglobin came back at 6.2, transfusion will be ordered. However , a call was placed to her chief security and safety officer to see if there is any labs warranted prior to transfusion. A call was placed to the chief security and safety officer at 4:25 PM. I discussed the patient with Dr. Meyer and appropriate laboratory evaluation was ordered. CT of the abdomen and pelvis reveals no acute findings, I believe the patient can follow-up outpatient to see Dr. Jeancarlos Paulson after discharge from the hospital in regards to the CT. Patient was ordered 2 units of PRBCs, will be admitted to the medical service. I discussed the patient with Dr. Conner who agrees with admission. Medical Decision Making MDM Narrative Medical Screen Exam Complete: Yes Emergency Medical Condition: Yes Differential Diagnosis Differential Diagnosis: Differential includes iron deficiency anemia, recurrent fistula Lab Data Result diagrams: 11/01/18 15:20 11/01/18 15:20 Lab Results 11/01/18 11/01/18 11/01/18 Range/Units 15:20 15:20 15:20 CBC w Diff Slide review pending WBC 6.3 (4.0-11.0) th/mm3 RBC 2.88 L (4.00-5.30) mil/mm3 Hgb 6.2 L* (11.6-15.3) gm/dL Hct 20.4 L* (35.0-46.0) % MCV 70.6 L (80.0-100.0) fL MCH 21.5 L (27.0-34.0) pg MCHC 30.5 L (32.0-36.0) % RDW 16.8 (11.6-17.2) % Plt Count 404 (150-450) th/mm3 MPV 7.0 (7.0-11.0) fL Neut % (Auto) 58.2 (16.0-70.0) % Lymph % (Auto) 25.4 (9.0-44.0) % [place] % (Auto) 14.7 H (0.0-8.0) % Eos % (Auto) 1.1 (0.0-4.0) % Baso % (Auto) 0.6 (0.0-2.0) % Neut # (Auto) 3.7 (1.8-7.7) th/mm3 Lymph # (Auto) 1.6 (1.0-4.8) th/mm3 [place] # (Auto) 0.9 (0.0-0.9) th/mm3 Eos # (Auto) 0.1 (0.0-0.4) th/mm3 Baso # (Auto) 0.0 (0.0-0.2) th/mm3 WBC Differential . Diff Scan Auto diff confirmed Differential Comment . Target Cells 2+ H (None) Stomatocytes 1+ H (None) Acanthocytes (Spur) Occ H (None) Keratocytes Occ H (None) Haptoglobin 152 (30-200) mg/dL Sodium 136 (136-145) meq/L Potassium 4.0 (3.5-5.1) meq/L Chloride 102 (98-107) meq/L Carbon Dioxide 28.1 (21.0-32.0) meq/L Anion Gap 6 (5-15) meq/L BUN 13 (7-18) mg/dL Creatinine 0.90 (0.50-1.00) mg/dL Estimated GFR 61 L (>89) mL/min Random Glucose 87 (74-106) mg/dL Calcium 8.0 L (8.5-10.1) mg/dL Iron 10 L (50-170) mcg/dL TIBC 627 H (250-450) mcg/dL % Saturation 1.6 L (20-50) % Total Bilirubin 0.2 (0.2-1.0) mg/dL AST 14 L (15-37) U/L ALT 21 (10-53) U/L Alkaline Phosphatase 78 (45-117) U/L Total Protein 6.8 (6.4-8.2) g/dL Albumin 3.4 (3.4-5.0) g/dL Blood Type Antibody Screen 11/01/18 Range/Units 15:20 CBC w Diff WBC (4.0-11.0) th/mm3 RBC (4.00-5.30) mil/mm3 Hgb (11.6-15.3) gm/dL Hct (35.0-46.0) % MCV (80.0-100.0) fL MCH (27.0-34.0) pg MCHC (32.0-36.0) % RDW (11.6-17.2) % Plt Count (150-450) th/mm3 MPV (7.0-11.0) fL Neut % (Auto) (16.0-70.0) % Lymph % (Auto) (9.0-44.0) % [place] % (Auto) (0.0-8.0) % Eos % (Auto) (0.0-4.0) % Baso % (Auto) (0.0-2.0) % Neut # (Auto) (1.8-7.7) th/mm3 Lymph # (Auto) (1.0-4.8) th/mm3 [place] # (Auto) (0.0-0.9) th/mm3 Eos # (Auto) (0.0-0.4) th/mm3 Baso # (Auto) (0.0-0.2) th/mm3 WBC Differential Diff Scan Differential Comment Target Cells (None) Stomatocytes (None) Acanthocytes (Spur) (None) Keratocytes (None) Haptoglobin (30-200) mg/dL Sodium (136-145) meq/L Potassium (3.5-5.1) meq/L Chloride (98-107) meq/L Carbon Dioxide (21.0-32.0) meq/L Anion Gap (5-15) meq/L BUN (7-18) mg/dL Creatinine (0.50-1.00) mg/dL Estimated GFR (>89) mL/min Random Glucose (74-106) mg/dL Calcium (8.5-10.1) mg/dL Iron (50-170) mcg/dL TIBC (250-450) mcg/dL % Saturation (20-50) % Total Bilirubin (0.2-1.0) mg/dL AST (15-37) U/L ALT (10-53) U/L Alkaline Phosphatase (45-117) U/L Total Protein (6.4-8.2) g/dL Albumin (3.4-5.0) g/dL Blood Type B Positive Antibody Screen Negative Imaging Data Radiologist's impression: Abdomen/Pelvis CT 11/01/18 15:45 CONCLUSION: 1. Interval resolution of previously noted pelvic abscess with interval post surgical changes involving the colon status post partial colectomy. 2. Mild diverticulosis with no new inflammatory change. 3. The gallbladder is decompressed but otherwise unremarkable. Discharge Plan Discharge Disposition Patient Disposition: ED Admit(ED Internal Use Only) Discharge Condition Condition: Stable Discharge Order Discharge Orders: ED Use Only Admit Order (Routine); Ordered 11/01/18 Ordered By: Rizwan Dang Discharge Details Diagnosis: Symptomatic anemia, GI bleed Physicians Team ED Provider: Rizwan Dang Primary Care Provider: Aysha Hayes Rxs /Orders / Referrals /Forms Prescriptions: No Action torsemide 20 mg Tablet 20 mg PO DAILY RF: 0 trazodone 50 mg Tablet 50 mg PO HS RF: 0 ranitidine HCl 300 mg Tablet 300 mg PO HS RF: 0 levothyroxine 25 mcg Tablet 25 mcg PO HS RF: 0 pravastatin 20 mg Tablet 20 mg PO HS RF: 0 metoprolol succinate 25 mg Tablet Extended Release 24 Hr 25 mg PO DAILY RF: 0 calcium carbonate-vitamin D3 [Calcium 600 + D(3)] 600 mg(1,500mg) -400 unit Tablet 2 tab PO DAILY RF: 0 5-hydroxytryptophan (5-HTP) 100 mg Capsule 100 mg PO HS RF: 0 apixaban [Eliquis] 5 mg Tablet 5 mg PO BID RF: 0 potassium chloride 20 mEq Tablet Extended Release 2 caplet PO DAILY RF: 0 cyclosporine 0.05 % Drops 1 drp OPHTHALMIC (EYE) Q12H RF: 0 Status ED Status: Admitted Patient
[2018-11-01 16:09] LABS: Baso % (Auto) 0.6 % (0.0-2.0); Eos # (Auto) 0.1 th/mm3 (0.0-0.4); Eos % (Auto) 1.1 % (0.0-4.0); Lymph # (Auto) 1.6 th/mm3 (1.0-4.8); Lymph % (Auto) 25.4 % (9.0-44.0); Mean Corpuscular Hemoglobin 21.5 pg (27.0-34.0); Mean Corpuscular Volume 70.6 fL (80.0-100.0); Mono # (Auto) 0.9 th/mm3 (0.0-0.9); Mono % (Auto) 14.7 % (0.0-8.0); Neut # (Auto) 3.7 th/mm3 (1.8-7.7); Neut % (Auto) 58.2 % (16.0-70.0); Platelet Count 404 th/mm3 (150-450); Red Blood Count 2.88 mil/mm3 (4.00-5.30); Red Cell Distribution Width 16.8 % (11.6-17.2); White Blood Count 6.3 th/mm3 (4.0-11.0)
[2018-11-01 16:12] LABS: Mean Corpuscular HGB Conc 30.5 % (32.0-36.0)
[2018-11-01 16:13] LABS: Hematocrit 20.4 % (35.0-46.0); Hemoglobin 6.2 gm/dL (11.6-15.3)
[2018-11-01 16:14] LABS: Chloride 102 meq/L (98-107); Sodium 136 meq/L (136-145)
[2018-11-01 16:18] LABS: Albumin 3.4 g/dL (3.4-5.0); Anion Gap 6 meq/L (5-15); Blood Urea Nitrogen 13 mg/dL (7-18); Carbon Dioxide 28.1 meq/L (21.0-32.0); Glucose,Random 87 mg/dL (74-106)
[2018-11-01 16:21] LABS: Alanine Aminotransferase 21 U/L (10-53); Aspartate Aminotransferase 14 U/L (15-37); Glomerular Filtration Rate 61 mL/min (>89)
[2018-11-01 16:22] LABS: Total Protein 6.8 g/dL (6.4-8.2)
[2018-11-01 16:24] LABS: Alkaline Phosphatase 78 U/L (45-117)
[2018-11-01] MEDS ORDERED: Acetaminophen 325 MG Tablet PO PRN (16:31)
[2018-11-01 16:54] LABS: Stomatocytes 1+; Target Cells 2+
[2018-11-01 16:56] LABS: Acanthocytes Occ
[2018-11-01] MEDS ORDERED: Sodium Chlor 0.9% Inj 250 ML IV.SIG SCH (17:00)
[2018-11-01 17:48] LABS: % Iron Saturation 1.6 % (20-50)
--- NOTE | 2018-11-01 17:54 | CT ---
EXAM DATE: 11/01/2018 5:41 PM EST AGE/SEX: 73 years / Female INDICATIONS: Mid abdominal pain. History of pelvic abscess. CLINICAL DATA: This is the patient's initial encounter. Patient reports that signs and symptoms have been present for 1 month and indicates a pain score of 1/10. MEDICAL/SURGICAL HISTORY: Congestive heart failure. Gastroesophageal reflux disease. Divertic ulitis. Hypertension. Anemia. [place]-vesicular fistula. Colon resection. Appendectomy. Hysterectomy . Blepharoplasty. ORAL CONTRAST: Prescribed oral contrast ingested. RADIATION DOSE: 21.66 CTDI (mGy) [place] [facility] [place]. . TECHNIQUE: Multiple contiguous axial images were obtained through the abdomen and pelvis following b olus infusion of 85 ml Omnipaque 350 (iohexol) nonionic water-soluble contrast as a single exam dos e. Prescribed oral contrast ingested. Using automated exposure control and adjustment of the mA and/ or kV according to patient size, radiation dose was kept as low as reasonably achievable to obtain op timal diagnostic quality images. DICOM format image data is available electronically for review and comparison. FINDINGS: Lower Lungs: The visualized lower lungs are clear. Liver: The liver has a homogeneous density without space-occupying lesion. There is no dilation of th e biliary tree. The gallbladder is partially decompressed but otherwise unremarkable. Spleen: Homogeneous density without enlargement. Pancreas: Unremarkable without mass or calcification. Kidneys: Normal in size and shape. No evidence of mass or hydronephrosis. Adrenal Glands: Unremarkable. Aorta: The aorta and proximal iliac vessels are grossly unremarkable without aneurysmal dilation. Bowel/Mesentery: The bowel loops are grossly unremarkable. The cecum and sigmoid colon have a normal configuration. The previously noted pelvic abscess is no longer present. There are postsurgical cohn ges with anastomotic verenice in the region of the sigmoid colon. Multiple diverticuli are again noted . Abdominal Wall: Intact. Retroperitoneum: No evidence of adenopathy in the retrocrural, para-aortic, or deep pelvic regions. Bladder: Contours are smooth. Reproductive Organs: No abnormal masses or calcifications seen. Inguinal: The inguinal region is unremarkable without evidence of adenopathy. Bony Structures: Osteopenia and degenerative changes are again noted. Multiple chronic appearing com pression fracture deformities are noted in the thoracic spine. CONCLUSION: 1. Interval resolution of previously noted pelvic abscess with interval post surgical changes involv ing the colon status post partial colectomy. 2. Mild diverticulosis with no new inflammatory change. 3. The gallbladder is decompressed but otherwise unremarkable. Electronically signed by: Morgan Mark MD 11/01/2018 5:53 PM EST
[2018-11-01] MEDS ORDERED: CYCLOSPORINE 0.05% EACH EYE SCH (20:00)
[2018-11-01] MEDS: Acetaminophen 325 MG Tablet PO PRN (20:24)
[2018-11-01] MEDS: traZODone 50 MG Tablet PO SCH (21:04)
[2018-11-01] MEDS: Pantoprazole Inj 40 MG Vial IV.PUSH SCH (21:04)
[2018-11-01] MEDS: Dextrose 5%/NaCl 0.9% Inj 1,000 ML IV.CONT SCH (21:05)
[2018-11-02] MEDS: Acetaminophen 325 MG Tablet PO PRN ×4 (04:17→18:59)
[2018-11-02 06:47] LABS: Baso % (Auto) 0.3 % (0.0-2.0); Eos # (Auto) 0.1 th/mm3 (0.0-0.4); Eos % (Auto) 1.6 % (0.0-4.0); Hematocrit 25.5 % (35.0-46.0); Lymph % (Auto) 14.1 % (9.0-44.0); Mean Corpuscular HGB Conc 31.4 % (32.0-36.0); Mean Corpuscular Hemoglobin 23.9 pg (27.0-34.0); Mean Corpuscular Volume 76.2 fL (80.0-100.0); Mean Platelet Volume 6.8 fL (7.0-11.0); Mono # (Auto) 0.6 th/mm3 (0.0-0.9); Mono % (Auto) 8.9 % (0.0-8.0); Neut # (Auto) 5.2 th/mm3 (1.8-7.7); Neut % (Auto) 75.1 % (16.0-70.0); Platelet Count 286 th/mm3 (150-450); Red Blood Count 3.34 mil/mm3 (4.00-5.30); White Blood Count 6.9 th/mm3 (4.0-11.0)
[2018-11-02 06:52] LABS: Chloride 105 meq/L (98-107); Potassium 3.7 meq/L (3.5-5.1); Sodium 138 meq/L (136-145)
[2018-11-02 06:54] LABS: INR 1.1 Ratio; Prothrombin Time 10.9 sec (9.8-11.6)
[2018-11-02 06:56] LABS: Albumin 2.9 g/dL (3.4-5.0); Blood Urea Nitrogen 9 mg/dL (7-18); Glucose,Random 113 mg/dL (74-106)
[2018-11-02 06:57] LABS: Anion Gap 7 meq/L (5-15); Calcium 7.5 mg/dL (8.5-10.1); Carbon Dioxide 26.5 meq/L (21.0-32.0)
[2018-11-02 06:59] LABS: Alanine Aminotransferase 15 U/L (10-53); Aspartate Aminotransferase 15 U/L (15-37); Glomerular Filtration Rate Greater Than 89 mL/min (>89)
[2018-11-02 07:01] LABS: Total Protein 5.5 g/dL (6.4-8.2)
[2018-11-02 07:02] LABS: Alkaline Phosphatase 60 U/L (45-117)
[2018-11-02 07:31] LABS: Target Cells 1+
[2018-11-02] MEDS: Dextrose 5%/NaCl 0.9% Inj 1,000 ML IV.CONT SCH (08:45)
[2018-11-02] MEDS: Pantoprazole Inj 40 MG Vial IV.PUSH SCH ×2 (08:46→21:34)
--- NOTE | 2018-11-02 09:30 | P.HP ---
History of Present Illness Primary Care Physician: Aysha Hayes MD Chief Complaint: Symptomatic anemia History of Present Illness: This is a 73-year-old female patient with a known medical history of atrial fibrillation on Eliquis, hypertension, hyperlipidemia and hypothyroidism who presented to the ED with symptomatic anemia including increasing weakness as well as shortness of breath over the past 2 weeks. Patient states that her symptoms have been ongoing for roughly 2 weeks, she states that she has had worsening shortness of breath especially with exertion feels overall fatigued. She does admit to some angina as well associated with these symptoms, she states that her anginal symptoms have been intermittently throughout the day, states that her chest pain is in the left chest and radiates down her right arm as well as radiates up her neck. The symptoms usually last a couple minutes and then go away with resting and use of nitroglycerin. She admits to associated shortness of breath with pain denies any associated nausea, vomiting or sweating. Patient does follow with Dr. Elisabeth Winter, cardiology, last seen in May with no new changes to her medications. She is on Eliquis for atrial fibrillation. She did undergo a cardiac stress test as well as an echo less than a year ago which was reportedly unremarkable according to patient. 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 Patient follows with Dr. Paulson for whom she saw yesterday morning and complained of some lower abdominal pain, and outpatient CT was ordered and supposed to be done on Wednesday. Patient presented to the ED due to worsening symptoms and reported anemia on her outpatient labs. Patient does not follow with a embedded nurse, she states her last colonoscopy was to been over 5 years ago. Has never had an EGD. Denies any black or bloody stools. Hemoccult was positive in the ED. Patient presented with anemia hemoglobin 6.2/hematocrit 20.4. Patient was given [address] of the abdomen/pelvis did not show any acute findings. [employer] was called by ED physician due to her history of autoimmune hemolytic anemia, recommends for transfusion and follow- up outpatient. GI has been consulted, patient is stable at this time. Trending H&H. Improvement after transfusion to 8.0. - Diagnosis (1) Symptomatic anemia (2) GI bleed Inpatient Certification: I certify that the inpatient services were ordered in accordance with Medicare regulations governing the order. This includes certification that hospital inpatient services are reasonable and necessary and in the case of services not specified as inpatient-only under 42 CFR 419.22(n), that they are appropriately provided as inpatient services in accordance to with the 2-midnight benchmark under 43 CFR 412.3(e) Estimated Total Length of Stay (Days): 2 Plans for Post Hospital Care: Not yet determined Review of Systems All other systems reviewed negative except as stated in HPI PMFSH - History History Provided By: Patient - Medical History Medical History: Medical History (Last Reviewed 11/02/18 @ 10:42 by Buffy Mariano) Anemia Congestive heart failure (CHF) GERD (gastroesophageal reflux disease) High cholesterol Hx of diverticulitis of colon Hypertension Hypothyroidism Psoriasis Seborrhea Sleep apnea with use of continuous positive airway pressure (CPAP) Wears glasses - Surgical History Surgical History: Surgical History (Last Reviewed 11/02/18 @ 10:42 by Buffy Mariano) Hx of appendectomy History of colon resection History of partial hysterectomy History of tubal ligation Hx of blepharoplasty Hx of cataract removal with insertion of prosthetic lens - Family History Family History: Family History (Last Reviewed 11/02/18 @ 10:42 by Buffy Mariano) Father Stroke Mother Stroke - Social History I have reviewed the patient's Social History: Yes - Tobacco History Second Hand Smoke Exposure: No Tobacco Use In Past 30 Days: No Smoking Status: Former smoker Tobacco Type: Cigarettes - Alcohol History How Often Do You Have a Drink Containing Alcohol: 2 to 4 times a month - Substance Use History Substance History: No History of Abuse - Travel History Recent Travel in the [place] Within the Last 8 Weeks: No Recent Travel Out of the Country Within the Last 8 Weeks: No - Immunization History Tetanus Immunization: Unsure Hx Influenza Vaccine This Season: Yes Medications and Allergies Active Medications: Active Medications Acetaminophen (Tylenol) 650 mg PO Q4H PRN PRN Reason: Temp > 100.4 Last Admin: 11/02/18 08:47 Dose: 650 mg Diphenhydramine HCl (Benadryl) 25 mg PO Q4H PRN PRN Reason: SEE LABEL COMMENTS Sodium Chloride (Ns Inj) 250 mls @ 15 mls/hr IV.SIG ONCE [facility] Stop: 11/02/18 09:39 Last Infusion: 11/02/18 01:00 Dose: Infused Dextrose/Sodium Chloride (D5w/Normal Saline Inj) 1,000 mls @ 100 mls/hr IV.CONT .Q10H [facility] Stop: 11/02/18 15:59 Last Admin: 11/02/18 08:45 Dose: 100 mls/hr Levothyroxine Sodium (Synthroid) 25 mcg PO DAILY@0600 [facility] Last Admin: 11/02/18 06:01 Dose: 25 mcg Ondansetron HCl (Zofran Inj) 4 mg IV.PUSH Q6H PRN PRN Reason: NAUSEA OR VOMITING Pantoprazole Sodium (Protonix Inj) 40 mg IV.PUSH Q12H [facility] Last Admin: 11/02/18 08:46 Dose: 40 mg Cyclosporine 0.05% 1 (Drop Each Eye Q12h) 1 each EACH EYE Q12H [facility] Sodium Chloride (Ns Flush) 2 ml IV.FLUSH BID [facility] Last Admin: 11/01/18 21:10 Dose: Not Given Sodium Chloride (Ns Flush) 2 ml IV.FLUSH PRN PRN PRN Reason: FLUSH AFTER USING IV ACCESS Trazodone HCl (Desyrel) 50 mg PO HS [facility] Last Admin: 11/01/18 21:04 Dose: 50 mg Allergies Allergy/AdvReac Type Severity Reaction Status Date / Time codeine Allergy Severe HIVES Verified 11/01/18 14:42 hydrocodone Allergy Severe Itching Verified 11/01/18 14:42 lisinopril Allergy Severe Cough Verified 11/01/18 14:42 propafenone Allergy Severe Anaphylaxis Verified 11/01/18 14:42 Opioids - Morphine Analogues AdvReac Severe Hives Verified 11/01/18 14:42 Opioids-Meperidine and AdvReac Severe Hives Verified 11/01/18 14:42 Related banana AdvReac Gastrointestinal Verified 11/01/18 14:42 Upset Home Medications Medication Instructions Recorded Confirmed Type 5-hydroxytryptophan (5-HTP) 100 mg PO HS 05/21/18 11/01/18 History apixaban [Eliquis] 5 mg PO BID 05/21/18 11/01/18 History calcium carbonate-vitamin D3 2 tab PO DAILY 05/21/18 11/01/18 History [Calcium 600 + D(3)] cyclosporine 1 drp OPHTHALMIC (EYE) Q12H 05/21/18 11/01/18 History levothyroxine 25 mcg PO HS 05/21/18 11/01/18 History metoprolol succinate 25 mg PO DAILY 05/21/18 11/01/18 History potassium chloride 2 caplet PO DAILY 05/21/18 11/01/18 History pravastatin 20 mg PO HS 05/21/18 11/01/18 History ranitidine HCl 300 mg PO HS 05/21/18 11/01/18 History torsemide 20 mg PO DAILY 05/21/18 11/01/18 History trazodone 50 mg PO HS 05/21/18 11/01/18 History Exam Vital signs: Vital Signs 11/01/18 14:43 11/01/18 17:22 11/01/18 18:49 Temperature 98.1 F Pulse Rate 72 70 74 Respiratory Rate 20 16 16 Blood Pressure 136/63 150/77 H 148/76 H Pulse Oximetry 97 97 98 11/01/18 20:00 11/01/18 20:08 11/01/18 20:16 Temperature 97.6 F 98.5 F 98.4 F Pulse Rate 63 70 71 Respiratory Rate 18 18 Blood Pressure 127/57 L 130/57 L 117/58 L Pulse Oximetry 96 97 11/01/18 20:27 11/01/18 22:47 11/01/18 23:02 Temperature 98.5 F 98.3 F 98.3 F Pulse Rate 68 67 62 Respiratory Rate 20 20 Blood Pressure 125/71 123/57 L 110/64 Pulse Oximetry 97 99 96 11/01/18 23:16 11/02/18 01:50 11/02/18 04:00 Temperature 98.1 F 98.1 F 96.1 F L Pulse Rate 63 65 62 Respiratory Rate 20 18 18 Blood Pressure 121/59 L 134/60 125/66 Pulse Oximetry 97 96 96 11/02/18 08:00 Temperature 96.8 F L Pulse Rate 59 L Respiratory Rate 18 Blood Pressure 133/61 Pulse Oximetry 95 Intake & Output 11/01/18 11/02/18 11/02/18 18:59 06:59 18:59 Intake Total 1330 / 1330 1000 / 1000 Balance 1330 / 1330 1000 / 1000 Weight 72.5 kg 74.5 kg Intake: IV 50 / 50 1000 / 1000 D5W/Normal Saline Inj 1,000 ML 1000 / 1000 @ 100 mls/hr IV.CONT .Q10H [facility] Rx#:[id number] NS Inj 250 ML @ 15 mls/hr IV. 50 / 50 SIG ONCE MOHAN Rx#:[id number] Oral 480 / 480 Intake (Blood Product) Amt 800 / 800 Rbc As-3 Leukoreduced Unit 400 / 400 [id number] Rbc As-3 Leukoreduced Unit 400 / 400 [id number] Other: # Voids 2 Weight On Admission 74.7 kg Narrative: GENERAL: Well-developed, well-nourished patient in NAD. SKIN: Warm and dry. No rash. Pale. HEAD: Normocephalic. Atraumatic. EYES: Pupils equal and round. No scleral icterus. No injection or drainage. ENT: No nasal bleeding or discharge. Mucous membranes pink and moist. NECK: Supple. Trachea midline. CARDIOVASCULAR: Irregularly irregular heart rate. No murmur appreciated. RESPIRATORY: No accessory muscle use. Clear to auscultation. Breath sounds equal bilaterally. GASTROINTESTINAL: Abdomen soft, non-tender, nondistended. Normoactive bowel sounds x4. No abdominal pain. MUSCULOSKELETAL: No obvious deformities. Extremities without clubbing, cyanosis , or edema. NEUROLOGICAL: Awake and alert. No obvious cranial nerve deficits. Motor grossly within normal limits. 5/5 muscle strength in bilateral upper and lower extremities. Normal speech. PSYCHIATRIC: Appropriate mood and affect; insight and judgment normal. Results - Labs CBC & Chem 7: 11/02/18 05:20 11/02/18 05:20 Labs: Laboratory Results - last 24 hr 11/01/18 11/01/18 11/01/18 15:20 15:20 15:20 CBC w Diff Slide review pending WBC 6.3 RBC 2.88 L Hgb 6.2 L* Hct 20.4 L* MCV 70.6 L MCH 21.5 L MCHC 30.5 L RDW 16.8 Plt Count 404 MPV 7.0 Neut % (Auto) 58.2 Lymph % (Auto) 25.4 Cotton % (Auto) 14.7 H Eos % (Auto) 1.1 Baso % (Auto) 0.6 Neut # (Auto) 3.7 Lymph # (Auto) 1.6 Cotton # (Auto) 0.9 Eos # (Auto) 0.1 Baso # (Auto) 0.0 WBC Differential . Diff Scan Auto diff confirmed Differential Comment . Target Cells 2+ H Stomatocytes 1+ H Acanthocytes (Spur) Occ H Keratocytes Occ H Haptoglobin 152 PT INR Sodium 136 Potassium 4.0 Chloride 102 Carbon Dioxide 28.1 Anion Gap 6 BUN 13 Creatinine 0.90 Estimated GFR 61 L POC Glucose Random Glucose 87 Calcium 8.0 L Iron 10 L TIBC 627 H % Saturation 1.6 L Total Bilirubin 0.2 AST 14 L ALT 21 Alkaline Phosphatase 78 Total Protein 6.8 Albumin 3.4 Blood Type Antibody Screen MTS Gel Crossmatch 11/01/18 11/01/18 11/02/18 15:20 16:31 05:20 CBC w Diff Slide review pending WBC 6.9 RBC 3.34 L Hgb 8.0 L Hct 25.5 L MCV 76.2 L D MCH 23.9 L MCHC 31.4 L RDW 19.0 H Plt Count 286 MPV 6.8 L Neut % (Auto) 75.1 H Lymph % (Auto) 14.1 Cotton % (Auto) 8.9 H Eos % (Auto) 1.6 Baso % (Auto) 0.3 Neut # (Auto) 5.2 Lymph # (Auto) 1.0 Cotton # (Auto) 0.6 Eos # (Auto) 0.1 Baso # (Auto) 0.0 WBC Differential . Diff Scan Auto diff confirmed Differential Comment . Target Cells 1+ H Stomatocytes Acanthocytes (Spur) Keratocytes Occ H Haptoglobin PT INR Sodium Potassium Chloride Carbon Dioxide Anion Gap BUN Creatinine Estimated GFR POC Glucose Random Glucose Calcium Iron TIBC % Saturation Total Bilirubin AST ALT Alkaline Phosphatase Total Protein Albumin Blood Type B Positive Antibody Screen Negative MTS Gel Crossmatch See Detail 11/02/18 11/02/18 11/02/18 05:20 05:20 07:44 CBC w Diff WBC RBC Hgb Hct MCV MCH MCHC RDW Plt Count MPV Neut % (Auto) Lymph % (Auto) Cotton % (Auto) Eos % (Auto) Baso % (Auto) Neut # (Auto) Lymph # (Auto) Cotton # (Auto) Eos # (Auto) Baso # (Auto) WBC Differential Diff Scan Differential Comment Target Cells Stomatocytes Acanthocytes (Spur) Keratocytes Haptoglobin PT 10.9 INR 1.1 Sodium 138 Potassium 3.7 Chloride 105 Carbon Dioxide 26.5 Anion Gap 7 BUN 9 Creatinine 0.59 Estimated GFR Greater than 89 POC Glucose 129 H Random Glucose 113 H Calcium 7.5 L Iron TIBC % Saturation Total Bilirubin 1.1 H AST 15 ALT 15 Alkaline Phosphatase 60 Total Protein 5.5 L D Albumin 2.9 L Blood Type Antibody Screen MTS Gel Crossmatch - Imaging Impressions Abdomen/Pelvis CT 11/01/18 15:45 CONCLUSION: 1. Interval resolution of previously noted pelvic abscess with interval post surgical changes involving the colon status post partial colectomy. 2. Mild diverticulosis with no new inflammatory change. 3. The gallbladder is decompressed but otherwise unremarkable. Caprini VTE Risk Assessment Caprini VTE Risk Assessment: Moderate/High Risk (score >= 2) Caprini Risk Assessment Model: Point Value = 1 Point Value = 2 Point Value = 3 Point Value = 5 Age 41-60 Minor surgery BMI > 25 kg/m2 Swollen legs Varicose veins or History of unexplained or recurrent spontaneous Oral contraceptives or hormone replacement Sepsis (< 1 month) Serious lung disease, including pneumonia (< 1 month) Abnormal pulmonary function Acute myocardial infarction Congestive heart failure (< 1 month) History of inflammatory bowel disease Medical patient at bed rest Age 61-74 Arthroscopic surgery Major open surgery (> 45 min) Laparoscopic surgery (> 45 min) Malignancy Confined to bed (> 72 hours) Immobilizing plaster cast Central venous access Age >= 75 History of VTE Family history of VTE Factor V Leiden Prothrombin 10086C Lupus anticoagulant Anticardiolipin antibodies Elevated serum homocysteine Heparin-induced thrombocytopenia Other congenital or acquired thrombophilia Stroke (< 1 month) Elective arthroplasty Hip, pelvis, or leg fracture Acute spinal cord injury (< 1 month) Prophylaxis Regimen: Total Risk Factor Score Risk Level Prophylaxis Regimen 0-1 Low Early ambulation 2 Moderate Order ONE of the following: *Sequential Compression Device (SCD) *Heparin 5000 units SQ BID 3-4 Higher Order ONE of the following medications: *Heparin 5000 units SQ TID *Enoxaparin/Lovenox 40 mg SQ daily (WT < 150 kg, CrCl > 30 mL/min) *Enoxaparin/Lovenox 30 mg SQ daily (WT < 150 kg, CrCl > 10-29 mL/min) *Enoxaparin/Lovenox 30 mg SQ BID (WT < 150 kg, CrCl > 30 mL/min) AND/OR *Sequential Compression Device (SCD) 5 or more Highest Order ONE of the following medications: *Heparin 5000 units SQ TID (Preferred with Epidurals) *Enoxaparin/Lovenox 40 mg SQ daily (WT < 150 kg, CrCl > 30 mL/min) *Enoxaparin/Lovenox 30 mg SQ daily (WT < 150 kg, CrCl > 10-29 mL/min) *Enoxaparin/Lovenox 30 mg SQ BID (WT < 150 kg, CrCl > 30 mL/min) AND *Sequential Compression Device (SCD) Assessment and Plan - Assessment (1) Symptomatic anemia Code(s): D64.9 - Anemia, unspecified Status: Acute (2) GI bleed Code(s): K92.2 - Gastrointestinal hemorrhage, unspecified Status: Acute - Plan This is a 73-year-old female patient with: Symptomatic anemia suspect GI bleed, + Hemoccult History of immune hemolytic anemia On Eliquis for atrial fibrillation -Patient presented with a 2-week history of overall fatigue, worsening shortness of breath and weakness as well as anginal symptoms. -Hemoglobin 6.2/hematocrit 20.4. Patient was given 2 units PRBC. Hemoglobin 8.0 status post transfusion. -Abdominal/pelvis CT done and reviewed showing resolution of previously noted pelvic abscess with surgical changes noted. No acute findings. -Hemoccult stool positive in ED. Will trend H&H. -Gastroenterology consulted, input and recommendations pending. -Continue Protonix. -Haptoglobin 152. Iron studies with iron 10, TIBC 627, percent saturation 1.6. -BMP reviewed, essentially unremarkable. -Clear liquid diet for now. NPO after midnight if GI wants to perform procedure. -Hold Eliquis for now. -Monitor for improvement. Angina suspect secondary to symptomatic anemia -Monitor troponins CK-MB and CPK to labs. Will trend. Check EKG. -Currently resolved. Will continue to monitor. History of atrial fibrillation, on Eliquis -Continue cardiac telemetry, controlled atrial fibrillation on monitor. -Hold Eliquis. Secondary to anemia. DVT prophylaxis: SCDs. (2) GI bleed Qualifiers: GI bleed type/associated pathology: unspecified gastrointestinal hemorrhage type Qualified Code(s): K92.2 - Gastrointestinal hemorrhage, unspecified
[2018-11-02 12:02] LABS: Creatine Kinase 35 U/L (26-192)
--- NOTE | 2018-11-02 13:28 | ECG ---
Date Performed: 11/02/2018 Time Performed: 11:33:30 PTAGE: 73 years EKG: Sinus rhythm LOW QRS VOLTAGE IN PRECORDIAL LEADS BORDERLINE ECG PREVIOUS TRACING : 05/19/2018 18.56 Since the previous tracing, no significant change noted DOCTOR: Randall Goff Interpretating Date/Time 11/02/2018 13:26:37
[2018-11-02 16:26] LABS: Hematocrit 29.1 % (35.0-46.0); Hemoglobin 8.9 gm/dL (11.6-15.3)
[2018-11-02 17:05] LABS: Creatine Kinase 38 U/L (26-192)
[2018-11-02] MEDS: Torsemide 20 MG Tablet PO SCH (18:00)
--- NOTE | 2018-11-02 19:11 | ECG ---
Date Performed: 11/02/2018 Time Performed: 16:05:59 PTAGE: 73 years EKG: Baseline artifact present Unclear SUPRAVENTRICULAR RHYTHM BORDERLINE LEFT AXIS DEVIATION LO W QRS VOLTAGE IN PRECORDIAL LEADS BORDERLINE ECG No significant change from prior electrocardiogram. PREVIOUS TRACING : 11/02/2018 11.33 DOCTOR: Jermaine Wills Interpretating Date/Time 11/02/2018 19:10:23
[2018-11-02] MEDS ORDERED: PEG 3350/E-Lyte Soln 4000 ML Bottle PO ONE (20:58)
--- NOTE | 2018-11-02 21:06 | P.CONGI ---
History of Present Illness Consult date: 11/02/18 Consult reason: Severe anemia Chief complaint: Symptomatic anemia,iron deficiency anemia,GI bleed History of Present Illness: Patient is a pleasant 73-year-old female with complex past medical history who felt increasingly weak fatigued with exertional shortness of breath even for just a few steps and on presentation to the ER she was noted to have a hemoglobin of 5.6 which prompted this consult the patient denies any melena or hematochezia denies any hematemesis or coffee-ground emesis she does report epigastric pain no nausea or vomiting no diarrhea or constipation no change in bowel habits no melena or hematochezia no hematemesis or coffee-ground emesis no obvious bleeding the patient does report that she uses ibuprofen regularly for arthritic type pains she does recall having had a colonoscopy several years ago but does not recall ever having an upper endoscopy Review of Systems Review of systems Patient denies any headache dizziness blurry vision, denies any chest pain shortness of breath cough fever chills, Denies any palpitations or fatigue denies any polyuria dysuria hematuria, denies any numbness tingling or weakness, denies any skin rash pruritus or jaundice, denies any easy bruising or bleeding tendency, denies any recent change in mood PMFSH - History History Provided By: Patient - Medical History Medical History: Medical History (Last Reviewed 11/02/18 @ 10:42 by Buffy Mariano) Anemia Congestive heart failure (CHF) GERD (gastroesophageal reflux disease) High cholesterol Hx of diverticulitis of colon Hypertension Hypothyroidism Psoriasis Seborrhea Sleep apnea with use of continuous positive airway pressure (CPAP) Wears glasses - Surgical History Surgical History: Surgical History (Last Reviewed 11/02/18 @ 10:42 by Buffy Mariano) Hx of appendectomy History of colon resection History of partial hysterectomy History of tubal ligation Hx of blepharoplasty Hx of cataract removal with insertion of prosthetic lens - Family History Family History: Family History (Last Reviewed 11/02/18 @ 10:42 by Buffy Mariano) Father Stroke Mother Stroke - Tobacco History Second Hand Smoke Exposure: No Tobacco Use In Past 30 Days: No Smoking Status: Former smoker Tobacco Type: Cigarettes - Alcohol History How Often Do You Have a Drink Containing Alcohol: 2 to 4 times a month - Substance Use History Substance History: No History of Abuse - Travel History Recent Travel in the [facility] Within the Last 8 Weeks: No Recent Travel Out of the Country Within the Last 8 Weeks: No - Immunization History Tetanus Immunization: Unsure Hx Influenza Vaccine This Season: Yes Medications and Allergies Active Medications: Active Medications Acetaminophen (Tylenol) 650 mg PO Q4H PRN PRN Reason: Temp > 100.4 Last Admin: 11/02/18 18:59 Dose: 650 mg Diphenhydramine HCl (Benadryl) 25 mg PO Q4H PRN PRN Reason: SEE LABEL COMMENTS Levothyroxine Sodium (Synthroid) 25 mcg PO DAILY@0600 [facility] Last Admin: 11/02/18 06:01 Dose: 25 mcg Metoprolol Succinate (Toprol Xl) 25 mg PO DAILY [facility] Last Admin: 11/02/18 11:26 Dose: 25 mg Ondansetron HCl (Zofran Inj) 4 mg IV.PUSH Q6H PRN PRN Reason: NAUSEA OR VOMITING Pantoprazole Sodium (Protonix Inj) 40 mg IV.PUSH Q12H [facility] Last Admin: 11/02/18 08:46 Dose: 40 mg Cyclosporine 0.05% 1 (Drop Each Eye Q12h) 1 each EACH EYE Q12H [facility] Polyethylene Glycol/Electrolytes (Colyte Liq) 4,000 ml PO ONCE ONE Stop: 11/02/18 20:59 Sodium Chloride (Ns Flush) 2 ml IV.FLUSH BID [facility] Last Admin: 11/02/18 11:26 Dose: 2 ml Sodium Chloride (Ns Flush) 2 ml IV.FLUSH PRN PRN PRN Reason: FLUSH AFTER USING IV ACCESS Torsemide (Demadex) 20 mg PO DAILY [facility] Last Admin: 11/02/18 18:00 Dose: 20 mg Trazodone HCl (Desyrel) 50 mg PO HS [facility] Last Admin: 11/01/18 21:04 Dose: 50 mg Allergies Allergy/AdvReac Type Severity Reaction Status Date / Time codeine Allergy Severe HIVES Verified 11/01/18 14:42 hydrocodone Allergy Severe Itching Verified 11/01/18 14:42 lisinopril Allergy Severe Cough Verified 11/01/18 14:42 propafenone Allergy Severe Anaphylaxis Verified 11/01/18 14:42 Opioids - Morphine Analogues AdvReac Severe Hives Verified 11/01/18 14:42 Opioids-Meperidine and AdvReac Severe Hives Verified 11/01/18 14:42 Related banana AdvReac Gastrointestinal Verified 11/01/18 14:42 Upset Home Medications Medication Instructions Recorded Confirmed Type 5-hydroxytryptophan (5-HTP) 100 mg PO HS 05/21/18 11/01/18 History apixaban [Eliquis] 5 mg PO BID 05/21/18 11/01/18 History calcium carbonate-vitamin D3 2 tab PO DAILY 05/21/18 11/01/18 History [Calcium 600 + D(3)] cyclosporine 1 drp OPHTHALMIC (EYE) Q12H 05/21/18 11/01/18 History levothyroxine 25 mcg PO HS 05/21/18 11/01/18 History metoprolol succinate 25 mg PO DAILY 05/21/18 11/01/18 History potassium chloride 2 caplet PO DAILY 05/21/18 11/01/18 History pravastatin 20 mg PO HS 05/21/18 11/01/18 History ranitidine HCl 300 mg PO HS 05/21/18 11/01/18 History torsemide 20 mg PO DAILY 05/21/18 11/01/18 History trazodone 50 mg PO HS 05/21/18 11/01/18 History Exam Vital signs: Vital Signs 11/01/18 22:47 11/01/18 23:02 11/01/18 23:16 Temperature 98.3 F 98.3 F 98.1 F Pulse Rate 67 62 63 Respiratory Rate 20 20 20 Blood Pressure 123/57 L 110/64 121/59 L Pulse Oximetry 99 96 97 11/02/18 01:50 11/02/18 04:00 11/02/18 08:00 Temperature 98.1 F 96.1 F L 96.8 F L Pulse Rate 65 62 67 Respiratory Rate 18 18 18 Blood Pressure 134/60 125/66 133/61 Pulse Oximetry 96 96 95 11/02/18 11:22 11/02/18 11:45 11/02/18 16:00 Temperature 97.1 F L 97.1 F L Pulse Rate 60 69 Respiratory Rate 12 18 18 Blood Pressure 127/75 167/70 H Pulse Oximetry 96 97 11/02/18 16:09 11/02/18 20:00 Temperature 97.1 F L Pulse Rate 76 Respiratory Rate 18 18 Blood Pressure 138/70 Pulse Oximetry 94 L Intake & Output 11/02/18 11/02/18 11/03/18 06:59 18:59 06:59 Intake Total 1330 / 1330 1999 Balance 1330 / 1330 1999 Weight 74.5 kg Intake: IV 50 / 50 1999 D5W/Normal Saline Inj 1,000 ML 1999 @ 100 mls/hr IV.CONT .Q10H MOHAN Rx#:[id number] NS Inj 250 ML @ 15 mls/hr IV. 50 / 50 SIG ONCE MOHAN Rx#:[id number] Oral 480 / 480 Intake (Blood Product) Amt 800 / 800 Rbc As-3 Leukoreduced Unit 400 / 400 [id number] Rbc As-3 Leukoreduced Unit 400 / 400 [id number] Other: # Voids 2 6 1 Date of Last Bowel Movement 11/02/18 # Bowel Movements 1 1 Weight On Admission 74.7 kg - Constitutional no acute distress - Routine HEENT Exam Head: Present: normocephalic, atraumatic Eye: Present: EOMI, PERRL, conjunctivae pink ENT: Present: mucous membranes moist - Routine Neck Exam Present: supple. Absent: JVD - Routine Respiratory Exam Present: CTA bilaterally - Routine Cardiovascular Exam Present: S1, S2, irregular rhythm. Absent: murmur, gallop - Routine Abdominal Exam Present: soft, normoactive bowel sounds. Absent: tenderness, distended, rebound - Routine Extremities Exam Absent: cyanosis, clubbing, edema - Routine Skin Exam Present: dry, warm - Routine Neurological Exam Present: alert, oriented X3 Results - Labs CBC & Chem 7: 11/02/18 16:10 11/02/18 05:20 Labs: Laboratory Results - last 24 hr 11/01/18 11/01/18 11/01/18 15:20 15:20 16:31 CBC w Diff WBC RBC Hgb Hct MCV MCH MCHC RDW Plt Count MPV Neut % (Auto) Lymph % (Auto) Freestone % (Auto) Eos % (Auto) Baso % (Auto) Neut # (Auto) Lymph # (Auto) Freestone # (Auto) Eos # (Auto) Baso # (Auto) WBC Differential Diff Scan Differential Comment Target Cells Keratocytes PT INR Sodium Potassium Chloride Carbon Dioxide Anion Gap BUN Creatinine Estimated GFR POC Glucose Random Glucose Calcium Ferritin 4 L Total Bilirubin AST ALT Alkaline Phosphatase Total Creatine Kinase Troponin I Total Protein Albumin Vitamin B12 243 Folate 9.0 MTS Gel Crossmatch See Detail 11/02/18 11/02/18 11/02/18 05:20 05:20 05:20 CBC w Diff Slide review pending WBC 6.9 RBC 3.34 L Hgb 8.0 L Hct 25.5 L MCV 76.2 L D MCH 23.9 L MCHC 31.4 L RDW 19.0 H Plt Count 286 MPV 6.8 L Neut % (Auto) 75.1 H Lymph % (Auto) 14.1 Freestone % (Auto) 8.9 H Eos % (Auto) 1.6 Baso % (Auto) 0.3 Neut # (Auto) 5.2 Lymph # (Auto) 1.0 Freestone # (Auto) 0.6 Eos # (Auto) 0.1 Baso # (Auto) 0.0 WBC Differential . Diff Scan Auto diff confirmed Differential Comment . Target Cells 1+ H Keratocytes Occ H PT 10.9 INR 1.1 Sodium 138 Potassium 3.7 Chloride 105 Carbon Dioxide 26.5 Anion Gap 7 BUN 9 Creatinine 0.59 Estimated GFR Greater than 89 POC Glucose Random Glucose 113 H Calcium 7.5 L Ferritin Total Bilirubin 1.1 H AST 15 ALT 15 Alkaline Phosphatase 60 Total Creatine Kinase Troponin I Total Protein 5.5 L D Albumin 2.9 L Vitamin B12 Folate MTS Gel Crossmatch 11/02/18 11/02/18 11/02/18 07:44 11:25 16:10 CBC w Diff WBC RBC Hgb Hct MCV MCH MCHC RDW Plt Count MPV Neut % (Auto) Lymph % (Auto) Freestone % (Auto) Eos % (Auto) Baso % (Auto) Neut # (Auto) Lymph # (Auto) Freestone # (Auto) Eos # (Auto) Baso # (Auto) WBC Differential Diff Scan Differential Comment Target Cells Keratocytes PT INR Sodium Potassium Chloride Carbon Dioxide Anion Gap BUN Creatinine Estimated GFR POC Glucose 129 H Random Glucose Calcium Ferritin Total Bilirubin AST ALT Alkaline Phosphatase Total Creatine Kinase 35 38 Troponin I Less than 0.02 L Less than 0.02 L Total Protein Albumin Vitamin B12 Folate MTS Gel Crossmatch 11/02/18 16:10 CBC w Diff WBC RBC Hgb 8.9 L Hct 29.1 L MCV MCH MCHC RDW Plt Count MPV Neut % (Auto) Lymph % (Auto) Freestone % (Auto) Eos % (Auto) Baso % (Auto) Neut # (Auto) Lymph # (Auto) Freestone # (Auto) Eos # (Auto) Baso # (Auto) WBC Differential Diff Scan Differential Comment Target Cells Keratocytes PT INR Sodium Potassium Chloride Carbon Dioxide Anion Gap BUN Creatinine Estimated GFR POC Glucose Random Glucose Calcium Ferritin Total Bilirubin AST ALT Alkaline Phosphatase Total Creatine Kinase Troponin I Total Protein Albumin Vitamin B12 Folate MTS Gel Crossmatch Assessment and Plan - Plan Profound anemia etiology unclear probably related to GI loss possibly secondary to NSAID injury Agree with current supportive care Monitor labs and transfuse as needed We will plan on a EGD and a colonoscopy tomorrow Further recommendations will depend on findings
[2018-11-02 22:40] LABS: Creatine Kinase 53 U/L (26-192)
[2018-11-03] MEDS: traZODone 50 MG Tablet PO SCH ×2 (01:10→20:57)
[2018-11-03] MEDS: Acetaminophen 325 MG Tablet PO PRN ×3 (04:10→17:16)
--- NOTE | 2018-11-03 07:42 | P.PCN ---
Date of procedure: 11/03/18 Pre-op diagnosis: Profound anemia Procedure: PROCEDURE PERFORMED EGD with biopsy and a colonoscopy with biopsy PROCEDURE: The procedure, risks and benefits were discussed with Patient/POA and informed consent was obtained. Anesthesia sedated Patient with Diprivan. Patient was placed in the left lateral decubitus position. EGD: The Pentax videoscope was introduced through the oropharynx and advanced to the second portion of the duodenum under direct visualization. Retroflexion was performed in the stomach. FINDINGS: The esophagus the esophageal mucosa appeared to be significantly white possibly indicating chronic reflux this was biopsied The stomach there was some patchy erythema in the antrum no ulcerations and no erosions this was biopsied the rest of the stomach was unremarkable The duodenum this was normal random biopsies were taken for anemia Colonoscopy: The Pentax videoscope was introduced through the rectum and advanced to cecum where the ileocecal valve and appendiceal orifice were identified. Retroflexion was performed in the rectum. Colonic prep was good FINDINGS: Colonic withdrawal time greater than 6 minutes. As the scope was slowly withdrawn colonic mucosa was carefully inspected the patient was noted to have a mild stricturing with ulceration at an anastomotic site about 30 cm from the anal verge this is consistent with the patient's history of partial colectomy and colostomy with colostomy reversal this most likely represents an ischemic ulceration and stricturing biopsies were performed for further evaluation otherwise the colonoscopy was unremarkable so his retroflexion and rectal examination ESTIMATED BLOOD LOSS: None SPECIMENS REMOVED: Esophageal, gastric, duodenal, and colon biopsies COMPLICATIONS: None IMPRESSION: Esophageal mucosal hyperplasia probable chronic reflux Mild gastritis Anastomotic ulceration and stricturing of the colon PLAN: Await biopsies Recommend caution with anticoagulation Consult general surgery Continue with current supportive care Anesthesia: MAC Surgeon: Henok Martinez Condition: stable Disposition: floor
[2018-11-03] MEDS: Pantoprazole Inj 40 MG Vial IV.PUSH SCH ×2 (08:34→20:57)
[2018-11-03] MEDS: Torsemide 20 MG Tablet PO SCH (08:35)
--- NOTE | 2018-11-03 09:31 | P.PNIM ---
Subjective Interval history: Follow up anemia. Patient seen and examined, status post EGD and colonoscopy. Concern for ischemic ulcer. Concern for continued bleeding. Gen sx and plastic mixer have been consulted. Patient complaint of headache overnight which has improved with Tylenol. Otherwise patient is doing well. VSS. Afebrile. Will continue to monitor labs. Physical Exam Vital signs: Vital Signs 11/02/18 11:22 11/02/18 11:45 11/02/18 16:00 Temperature 97.1 F L 97.1 F L Pulse Rate 60 69 Respiratory Rate 11 08 18 Blood Pressure 127/75 167/70 H Pulse Oximetry 96 97 11/02/18 16:09 11/02/18 20:00 11/03/18 00:00 Temperature 97.1 F L 97.1 F L Pulse Rate 76 62 Respiratory Rate 18 18 18 Blood Pressure 138/70 157/74 H Pulse Oximetry 94 L 97 11/03/18 00:30 11/03/18 04:00 11/03/18 06:33 Temperature 96.5 F L 98.3 F Pulse Rate 63 75 75 Respiratory Rate 18 18 Blood Pressure 134/64 134/64 Pulse Oximetry 94 L 94 L 11/03/18 06:48 11/03/18 07:58 11/03/18 08:00 Temperature 98.3 F 96.5 F L Pulse Rate 75 66 63 Respiratory Rate 18 16 20 Blood Pressure 134/64 117/65 134/63 Pulse Oximetry 94 L 95 95 11/03/18 09:23 Temperature Pulse Rate 63 Respiratory Rate Blood Pressure Pulse Oximetry Intake & Output 11/02/18 11/03/18 11/03/18 18:59 06:59 18:59 Intake Total 1999 400 / 400 Output Total 5 / 5 Balance 1999 400 / 400 Weight 74.5 kg Intake: IV 1999 D5W/Normal Saline Inj 1,000 ML 1999 @ 100 mls/hr IV.CONT .Q10H MOHAN Rx#:[id number] Oral 1999 Anesthesia Amount 400 / 400 Output: Urine 3 / 3 Stool 2 / 2 Other: # Voids 6 1 Date of Last Bowel Movement 11/02/18 11/02/18 # Bowel Movements 1 1 Narrative: GENERAL: Well-developed, well-nourished patient in NAD. SKIN: Warm and dry. No rash. Pale. HEAD: Normocephalic. Atraumatic. EYES: Pupils equal and round. No scleral icterus. No injection or drainage. ENT: No nasal bleeding or discharge. Mucous membranes pink and moist. NECK: Supple. Trachea midline. CARDIOVASCULAR: Irregularly irregular heart rate. No murmur appreciated. RESPIRATORY: No accessory muscle use. Clear to auscultation. Breath sounds equal bilaterally. GASTROINTESTINAL: Abdomen soft, non-tender, nondistended. Normoactive bowel sounds x4. No abdominal pain. MUSCULOSKELETAL: No obvious deformities. Extremities without clubbing, cyanosis , or edema. NEUROLOGICAL: Awake and alert. No obvious cranial nerve deficits. Motor grossly within normal limits. 5/5 muscle strength in bilateral upper and lower extremities. Normal speech. PSYCHIATRIC: Appropriate mood and affect; insight and judgment normal. Results - Labs CBC & Chem 7: 11/02/18 16:10 11/02/18 05:20 Laboratory Results - last 24 hr 11/01/18 11/01/18 11/02/18 15:20 15:20 11:25 Hgb Hct Ferritin 4 L Total Creatine Kinase 35 Troponin I Less than 0.02 L Vitamin B12 243 Folate 9.0 11/02/18 11/02/18 11/02/18 16:10 16:10 22:00 Hgb 8.9 L Hct 29.1 L Ferritin Total Creatine Kinase 38 53 Troponin I Less than 0.02 L Less than 0.02 L Vitamin B12 Folate Assessment and Plan - Assessment (1) Symptomatic anemia Code(s): D64.9 - Anemia, unspecified Status: Acute (2) GI bleed Code(s): K92.2 - Gastrointestinal hemorrhage, unspecified Status: Acute - Plan This is a 73-year-old female patient with: Symptomatic anemia suspect GI bleed, + Hemoccult History of immune hemolytic anemia On Eliquis for atrial fibrillation -Patient presented with a 2-week history of overall fatigue, worsening shortness of breath and weakness as well as anginal symptoms. -Hemoglobin 6.2/hematocrit 20.4. Patient was given 2 units PRBC. Hemoglobin 8.9 status post transfusion. Awaiting labs this am. -Abdominal/pelvis CT done and reviewed showing resolution of previously noted pelvic abscess with surgical changes noted. No acute findings. -Hemoccult stool positive in ED. Will trend H&H. -Gastroenterology consulted, appreciate input and recommendations. -S/p EGD and colonoscopy 11/03/18, concern for ischemia ulcer and continued bleeding. Consult placed to general surgery, Dr. Paulson. Input and recommendations pending. Also consulted patient's plastic mixer per GI request for recommendations on anticoagulation and active bleeding. Await input. -Continue Protonix. -Haptoglobin 152. Iron studies with iron 10, TIBC 627, percent saturation 1.6. -BMP reviewed, essentially unremarkable. -Hold Eliquis. -Monitor for improvement. Angina suspect secondary to symptomatic anemia. Resolved. -Monitor troponins CK-MB and CPK to labs. Troponin trend negative. -EKG showing controlled rate, no ST changes. -Currently resolved. -Will continue to monitor. History of atrial fibrillation, on Eliquis -Continue cardiac telemetry, controlled atrial fibrillation on monitor. -Hold Eliquis. Secondary to anemia. -Consult placed to patient's plastic mixer Dr. Lindquist. DVT prophylaxis: SCDs. Discharge Planning: Awaiting general sx and cardiology consult. (2) GI bleed Qualifiers: GI bleed type/associated pathology: unspecified gastrointestinal hemorrhage type Qualified Code(s): K92.2 - Gastrointestinal hemorrhage, unspecified
[2018-11-03 11:50] LABS: Hematocrit 28.3 % (35.0-46.0); Hemoglobin 8.7 gm/dL (11.6-15.3); Mean Corpuscular Hemoglobin 23.2 pg (27.0-34.0); Mean Corpuscular Volume 75.6 fL (80.0-100.0); Mean Platelet Volume 6.4 fL (7.0-11.0); Platelet Count 319 th/mm3 (150-450); Red Blood Count 3.74 mil/mm3 (4.00-5.30); Red Cell Distribution Width 18.5 % (11.6-17.2); White Blood Count 6.5 th/mm3 (4.0-11.0)
[2018-11-03 11:56] LABS: Mean Corpuscular HGB Conc 30.7 % (32.0-36.0)
--- NOTE | 2018-11-03 12:06 | ECG ---
Date Performed: 11/02/2018 Time Performed: 21:53:44 PTAGE: 73 years EKG: Sinus rhythm LOW QRS VOLTAGE IN PRECORDIAL LEADS Borderline nonspecific ST segment changes BORDERLINE ECG No sign ificant change from prior electrocardiogram. PREVIOUS TRACING : 11/02/2018 16.05 DOCTOR: Jermaine Wills Interpretating Date/Time 11/03/2018 12:06:20
[2018-11-04 05:57] LABS: Baso % (Auto) 0.5 % (0.0-2.0); Eos # (Auto) 0.2 th/mm3 (0.0-0.4); Eos % (Auto) 2.1 % (0.0-4.0); Hematocrit 27.9 % (35.0-46.0); Hemoglobin 8.8 gm/dL (11.6-15.3); Lymph # (Auto) 1.7 th/mm3 (1.0-4.8); Lymph % (Auto) 22.4 % (9.0-44.0); Mean Corpuscular HGB Conc 31.5 % (32.0-36.0); Mean Corpuscular Hemoglobin 23.4 pg (27.0-34.0); Mean Corpuscular Volume 74.5 fL (80.0-100.0); Mean Platelet Volume 6.5 fL (7.0-11.0); Mono # (Auto) 0.9 th/mm3 (0.0-0.9); Mono % (Auto) 12.1 % (0.0-8.0); Neut # (Auto) 4.7 th/mm3 (1.8-7.7); Neut % (Auto) 62.9 % (16.0-70.0); Platelet Count 319 th/mm3 (150-450); Red Blood Count 3.75 mil/mm3 (4.00-5.30); Red Cell Distribution Width 19.2 % (11.6-17.2); White Blood Count 7.5 th/mm3 (4.0-11.0)
[2018-11-04 07:35] LABS: Target Cells 1+
[2018-11-04 07:36] LABS: Platelet Estimate Normal (Normal); Platelet Morphology Normal (Normal)
--- NOTE | 2018-11-04 07:47 | P.CONGS ---
[facility] Gen Surgery Consult Note Consult date: 11/04/18 Reason for consult: other (s/p colostomy takedown; concern for bleeding) Requesting physician: Henok Martinez Narrative: CONSULTATION NOTE FOR SURGICAL ATTENDING, DR. TOLU TREADWELL This is a 73 year old female well known to our service. She is s/p exploratory laparotomy, sigmoid colectomy, ligation of a colovesical fistula and descending colon colostomy earlier this year. The patient's colostomy was taken down several months ago. She has been doing well since these surgeries. She does take oral anticoagulation for her atrial fibrillation. She is in the hospital after she developed acute onset of fatigue and shortness of breath several days ago and she was worried she was anemic. Her hemoglobin on admission was 6.2. She was transfused PRBCs and now feels better. GI was consulted and a colonoscopy was done. There is a concern for ulceration at her anastomosis with stricturing of the colon. Currently on exam, the patient is feeling better and tolerating a regular diet. A General Surgery consultation has been requested. Review of Systems All other systems reviewed negative except as stated in [facility] - History History Provided By: Patient - Medical History Medical History: Medical History (Last Reviewed 11/05/18 @ 08:37 by Tolu Treadwell MD) Anemia Congestive heart failure (CHF) GERD (gastroesophageal reflux disease) High cholesterol Hx of diverticulitis of colon Hypertension Hypothyroidism Psoriasis Seborrhea Sleep apnea with use of continuous positive airway pressure (CPAP) Wears glasses - Surgical History Surgical History: Surgical History (Last Reviewed 11/05/18 @ 08:37 by Tolu Treadwell MD) History of colon resection History of partial hysterectomy History of tubal ligation Hx of appendectomy Hx of blepharoplasty Hx of cataract removal with insertion of prosthetic lens S/P colostomy takedown - Family History Family History: Family History (Last Reviewed 11/05/18 @ 08:37 by Tolu Treadwell MD) Father Stroke Mother Stroke - Social History I have reviewed the patient's Social History: Yes - Tobacco History Second Hand Smoke Exposure: No Tobacco Use In Past 30 Days: No Smoking Status: Former smoker Tobacco Type: Cigarettes - Alcohol History How Often Do You Have a Drink Containing Alcohol: 2 to 4 times a month - Substance Use History Substance History: No History of Abuse - Travel History Recent Travel in the [place] Within the Last 8 Weeks: No Recent Travel Out of the Country Within the Last 8 Weeks: No - Immunization History Tetanus Immunization: Unsure Hx Influenza Vaccine This Season: Yes Medications and Allergies Allergies Allergy/AdvReac Type Severity Reaction Status Date / Time codeine Allergy Severe HIVES Verified 11/01/18 14:42 hydrocodone Allergy Severe Itching Verified 11/01/18 14:42 lisinopril Allergy Severe Cough Verified 11/01/18 14:42 propafenone Allergy Severe Anaphylaxis Verified 11/01/18 14:42 Opioids - Morphine Analogues AdvReac Severe Hives Verified 11/01/18 14:42 Opioids-Meperidine and AdvReac Severe Hives Verified 11/01/18 14:42 Related banana AdvReac Gastrointestinal Verified 11/01/18 14:42 Upset Home Medications Medication Instructions Recorded Confirmed Type 5-hydroxytryptophan (5-HTP) 100 mg PO HS 05/21/18 11/01/18 History calcium carbonate-vitamin D3 2 tab PO DAILY 05/21/18 11/01/18 History [Calcium 600 + D(3)] cyclosporine 1 drp OPHTHALMIC (EYE) Q12H 05/21/18 11/01/18 History levothyroxine 25 mcg PO HS 05/21/18 11/01/18 History metoprolol succinate 25 mg PO DAILY 05/21/18 11/01/18 History potassium chloride 2 caplet PO DAILY 05/21/18 11/01/18 History pravastatin 20 mg PO HS 05/21/18 11/01/18 History ranitidine HCl 300 mg PO HS 05/21/18 11/01/18 History torsemide 20 mg PO DAILY 05/21/18 11/01/18 History trazodone 50 mg PO HS 05/21/18 11/01/18 History Active Medications: Active Medications Acetaminophen (Tylenol) 650 mg PO Q4H PRN PRN Reason: Temp > 100.4 Last Admin: 11/03/18 17:16 Dose: 650 mg Diphenhydramine HCl (Benadryl) 25 mg PO Q4H PRN PRN Reason: SEE LABEL COMMENTS Levothyroxine Sodium (Synthroid) 25 mcg PO DAILY@0600 [facility] Last Admin: 11/04/18 05:50 Dose: 25 mcg Metoprolol Succinate (Toprol Xl) 25 mg PO DAILY [facility] Last Admin: 11/03/18 08:35 Dose: 25 mg Ondansetron HCl (Zofran Inj) 4 mg IV.PUSH Q6H PRN PRN Reason: NAUSEA OR VOMITING Pantoprazole Sodium (Protonix Inj) 40 mg IV.PUSH Q12H [facility] Last Admin: 11/03/18 20:57 Dose: 40 mg Cyclosporine 0.05% 1 (Drop Each Eye Q12h) 1 each EACH EYE Q12H [facility] Sodium Chloride (Ns Flush) 2 ml IV.FLUSH BID [facility] Last Admin: 11/03/18 20:58 Dose: 2 ml Sodium Chloride (Ns Flush) 2 ml IV.FLUSH PRN PRN PRN Reason: FLUSH AFTER USING IV ACCESS Torsemide (Demadex) 20 mg PO DAILY [facility] Last Admin: 11/03/18 08:35 Dose: 20 mg Trazodone HCl (Desyrel) 50 mg PO [facility] Last Admin: 11/03/18 20:57 Dose: 50 mg Exam Vital signs: Vital Signs 11/03/18 07:58 11/03/18 08:00 11/03/18 09:23 Temperature 96.5 F L Pulse Rate 66 72 63 Respiratory Rate 16 20 Blood Pressure 117/65 134/63 Pulse Oximetry 95 95 11/03/18 12:00 11/03/18 16:00 11/03/18 20:00 Temperature 98.2 F 98.1 F 97.1 F L Pulse Rate 75 73 70 Respiratory Rate 20 20 20 Blood Pressure 144/68 H 125/82 135/71 Pulse Oximetry 97 95 94 L 11/03/18 20:07 11/04/18 00:00 11/04/18 04:00 Temperature 98.6 F Pulse Rate 68 63 58 L Respiratory Rate 20 Blood Pressure 139/75 Pulse Oximetry 99 Intake & Output 11/03/18 11/04/18 11/04/18 18:59 06:59 18:59 Intake Total 1090 / 1090 Balance 1090 / 1090 Weight 73.9 kg Intake: Oral 690 / 690 Anesthesia Amount 400 / 400 Other: # Voids 12 3 Date of Last Bowel Movement 11/02/18 11/03/18 # Bowel Movements 0 Narrative: GENERAL: Very pleasant 73 year old female resting in bed in no acute distress. SKIN: Warm and dry. HEAD: Atraumatic. Normocephalic. EYES: Pupils equal and round. No scleral icterus. No injection or drainage. ENT: No nasal bleeding or discharge. Mucous membranes pink and moist. NECK: Trachea midline. . CARDIOVASCULAR: Regular rate and rhythm. RESPIRATORY: No accessory muscle use. Clear to auscultation. Breath sounds equal bilaterally. GASTROINTESTINAL: Abdomen soft, non-tender, nondistended. All incisions nicely healed. MUSCULOSKELETAL: Extremities without clubbing, cyanosis, or edema. No obvious deformities. NEUROLOGICAL: Awake and alert. No obvious cranial nerve deficits. Motor grossly within normal limits. Five out of 5 muscle strength in the arms and legs. Normal speech. PSYCHIATRIC: Appropriate mood and affect; insight and judgment normal. Results - Labs 11/04/18 05:38 11/02/18 05:20 Laboratory Results - last 24 hr 11/03/18 11/04/18 11:30 05:38 CBC w Diff Slide review pending WBC 6.5 7.5 RBC 3.74 L 3.75 L Hgb 8.7 L 8.8 L Hct 28.3 L 27.9 L MCV 75.6 L 74.5 L MCH 23.2 L 23.4 L MCHC 30.7 L 31.5 L RDW 18.5 H 19.2 H Plt Count 319 319 MPV 6.4 L 6.5 L Neut % (Auto) 62.9 Lymph % (Auto) 22.4 [place] % (Auto) 12.1 H Eos % (Auto) 2.1 Baso % (Auto) 0.5 Neut # (Auto) 4.7 Lymph # (Auto) 1.7 [place] # (Auto) 0.9 Eos # (Auto) 0.2 Baso # (Auto) 0.0 WBC Differential . Diff Scan Auto diff confirmed Differential Comment . Platelet Estimate Normal Platelet Morphology Normal Target Cells 1+ H - Imaging Imaging: ITS Impressions Abdomen/Pelvis CT 11/01/18 15:45 CONCLUSION: 1. Interval resolution of previously noted pelvic abscess with interval post surgical changes involving the colon status post partial colectomy. 2. Mild diverticulosis with no new inflammatory change. 3. The gallbladder is decompressed but otherwise unremarkable. CT scan - abdomen: report reviewed, image reviewed CT scan - pelvis: report reviewed, image reviewed Assessment and Plan - Assessment (1) Symptomatic anemia Code(s): D64.9 - Anemia, unspecified Status: Acute Plan: 73 year old female with symptomatic anemia; now better after transfusion of PRBCs -Continue regular diet -Continue to hold OAC at this time -Patient to follow up with Dr. Lindquist regarding OAC -Patient to follow up in the office -General Surgery clear for DC -Thank you for this consult - Plan Discussed Condition With: Dr. Treadwell and Dr. Khurram Vasques Jaspreet - Attending Attestation consultation NOTE FOR SURGICAL ATTENDING, DR. TOLU TREADWELL I agree with above assessment and plan. The exam, history, and the medical decision-making described in the above note were completed with the assistance of the mid-level provider. I reviewed and agree with the findings presented. I attest that I had a [id number] encounter with the patient on the same day, and personally performed and documented my assessment and findings in the medical record. The following services were provided during this hospital visit: Chart data review, vital sign assessments/reviewing monitor data Review of consultations notes if present. Medication orders/review and/or management Ordering and/or reviewing lab tests Ordering and/or interpreting/reviewing x-rays and/or diagnostic studies Care of the patient and discussion of the patient with the care team Documentation time To help prompt me to consider important information that might be impacting today's encounter and assessment, Information from prior notes written by myself or my colleagues may have been "brought forward/copy and pasted" into today's note.
--- NOTE | 2018-11-04 08:02 | P.DS ---
Date of admission: 11/01/18 18:30 Primary care physician: Aysha Hayes MD Anticipated date of discharge: 11/04/18 Brief History from admission: This is a 73-year-old female patient with a known medical history of atrial fibrillation on Eliquis, hypertension, hyperlipidemia and hypothyroidism who presented to the ED with symptomatic anemia including increasing weakness as well as shortness of breath over the past 2 weeks. Patient states that her symptoms have been ongoing for roughly 2 weeks, she states that she has had worsening shortness of breath especially with exertion feels overall fatigued. She does admit to some angina as well associated with these symptoms, she states that her anginal symptoms have been intermittently throughout the day, states that her chest pain is in the left chest and radiates down her right arm as well as radiates up her neck. The symptoms usually last a couple minutes and then go away with resting and use of nitroglycerin. She admits to associated shortness of breath with pain denies any associated nausea, vomiting or sweating. Patient does follow with Dr. Elisabeth Winter, cardiology, last seen in May with no new changes to her medications. She is on Eliquis for atrial fibrillation. She did undergo a cardiac stress test as well as an echo less than a year ago which was reportedly unremarkable according to patient. 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 Patient follows with Dr. Paulson for whom she saw yesterday morning and complained of some lower abdominal pain, and outpatient CT was ordered and supposed to be done on Wednesday. Patient presented to the ED due to worsening symptoms and reported anemia on her outpatient labs. Patient does not follow with a commercial loan reviewer, she states her last colonoscopy was to been over 5 years ago. Has never had an EGD. Denies any black or bloody stools. Hemoccult was positive in the ED. Patient presented with anemia hemoglobin 6.2/hematocrit 20.4. Patient was given [address] of the abdomen/pelvis did not show any acute findings. Recovery Collector was called by ED physician due to her history of autoimmune hemolytic anemia, recommends for transfusion and follow- up outpatient. GI has been consulted, patient is stable at this time. Trending H&H. Improvement after transfusion to 8.0. Patient update on day of discharge: Patient seen and examined, lying in bed comfortably in nad. No reports of any acute events overnight. VSS. AFebrile. Eating well without any n/v. No active bleeding. GI cleared for DC. Surgery at bedside with no surgical intervention at this time. Patient will follow up with her trade promotion analyst, GI, PCP and dispatch clerk. H&H stable. DS: Diagnosis - Discharge Diagnosis (1) Symptomatic anemia Status: Acute (2) GI bleed Status: Acute DS: Medications - Discharge Medications Prescriptions: pantoprazole [Protonix] 40 mg PO DAILY 14 Days #14 tab sucralfate [Carafate] 10 ml PO QID #300 ml DS: Summary Hospital Course: This is a 73-year-old female patient who presented to the ED with symptomatic anemia suspect GI bleed, + Hemoccult, patient does have a history of immune hemolytic anemia and is on Eliquis for atrial fibrillation . Patient presented with a 2-week history of overall fatigue, worsening shortness of breath and weakness as well as anginal symptoms. Hemoglobin 6.2/hematocrit 20.4. Patient was given 2 units PRBC. Hemoglobin 8.9 status post transfusion. Abdominal/ pelvis CT done and reviewed showing resolution of previously noted pelvic abscess with surgical changes noted. No acute findings. Hemoccult stool positive in ED. Gastroenterology consulted, S/p EGD and colonoscopy 11/03/18, concern for ischemia ulcer and continued bleeding. Consult placed to general surgery, Dr. Paulson. No surgical intervention at this time. We will see outpatient. And follow-up. Spoke to patient trade promotion analyst who will DC Eliquis. Follow-up outpatient. Patient will be continued on Protonix as well as Carafate. Haptoglobin 152. Iron studies with iron 10, TIBC 627, percent saturation 1.6. Patient also did present with some angina I suspect secondary to symptomatic anemia. This is resolved. Troponins are flat. CK-MB and seat PK were normal. EKG was normal. No events on telemetry during hospitalization. Patient does have a history of atrial fibrillation. Was controlled during hospitalization. Patient stable at this time and agreeable to plan. Will discharge home to follow-up with PCP and consultants. Diet as tolerated. Rx is written. Activity as tolerated. - Time Spent with Patient Total time spent providing and/or coordinating discharge services: Greater than 30 minutes - Quality: VTE Deep Vein Thrombosis/Pulmonary Embolism Present on Admission: No Exam Vital signs: Vital Signs 11/03/18 09:23 11/03/18 12:00 11/03/18 16:00 Temperature 98.2 F 98.1 F Pulse Rate 63 75 73 Respiratory Rate 20 20 Blood Pressure 144/68 H 125/82 Pulse Oximetry 97 95 11/03/18 20:00 11/03/18 20:07 11/04/18 00:00 Temperature 97.1 F L 98.6 F Pulse Rate 70 68 63 Respiratory Rate 20 20 Blood Pressure 135/71 139/75 Pulse Oximetry 94 L 99 11/04/18 04:00 Temperature Pulse Rate 58 L Respiratory Rate Blood Pressure Pulse Oximetry Intake & Output 11/03/18 11/04/18 11/04/18 18:59 06:59 18:59 Intake Total 1090 / 1090 Balance 1090 / 1090 Weight 73.9 kg Intake: Oral 690 / 690 Anesthesia Amount 400 / 400 Other: # Voids 12 3 Date of Last Bowel Movement 11/02/18 11/03/18 # Bowel Movements 0 Narrative: GENERAL: Well-developed, well-nourished patient in [facility]. SKIN: Warm and dry. No rash. Pale. HEAD: Normocephalic. Atraumatic. EYES: Pupils equal and round. No scleral icterus. No injection or drainage. ENT: No nasal bleeding or discharge. Mucous membranes pink and moist. NECK: Supple. Trachea midline. CARDIOVASCULAR: Irregularly irregular heart rate. No murmur appreciated. RESPIRATORY: No accessory muscle use. Clear to auscultation. Breath sounds equal bilaterally. GASTROINTESTINAL: Abdomen soft, non-tender, nondistended. Normoactive bowel sounds x4. No abdominal pain. MUSCULOSKELETAL: No obvious deformities. Extremities without clubbing, cyanosis , or edema. NEUROLOGICAL: Awake and alert. No obvious cranial nerve deficits. Motor grossly within normal limits. 5/5 muscle strength in bilateral upper and lower extremities. Normal speech. PSYCHIATRIC: Appropriate mood and affect; insight and judgment normal. Results Procedures completed during hospitalization: See above Pending studies at discharge: Pending at discharge 11/03/18 13:50 Surgical [PTH] Routine Labs on day of discharge: Labs from last 24 hours 11/04/18 11/03/18 05:38 11:30 CBC w Diff Slide review pending WBC 7.5 6.5 RBC 3.75 L 3.74 L Hgb 8.8 L 8.7 L Hct 27.9 L 28.3 L MCV 74.5 L 75.6 L MCH 23.4 L 23.2 L MCHC 31.5 L 30.7 L RDW 19.2 H 18.5 H Plt Count 319 319 MPV 6.5 L 6.4 L Neut % (Auto) 62.9 Lymph % (Auto) 22.4 [place] % (Auto) 12.1 H Eos % (Auto) 2.1 Baso % (Auto) 0.5 Neut # (Auto) 4.7 Lymph # (Auto) 1.7 [place] # (Auto) 0.9 Eos # (Auto) 0.2 Baso # (Auto) 0.0 WBC Differential . Diff Scan Auto diff confirmed Differential Comment . Platelet Estimate Normal Platelet Morphology Normal Target Cells 1+ H - Impressions ITS Impressions Abdomen/Pelvis CT 11/01/18 15:45 CONCLUSION: 1. Interval resolution of previously noted pelvic abscess with interval post surgical changes involving the colon status post partial colectomy. 2. Mild diverticulosis with no new inflammatory change. 3. The gallbladder is decompressed but otherwise unremarkable. Discharge Plan - Discharge Disposition Patient Disposition: 01 Discharge Home - Discharge Condition Condition: Stable - Discharge Order Discharge Orders: Discharge Order (Routine); Ordered 11/04/18 Ordered By: Buffy Marinao ED Use Only Admit Order (Routine); Ordered 11/01/18 Ordered By: Rizwan Dang - Discharge Details Anticipated Discharge Date: 11/04/18 - Physicians Team Primary Care Provider: Aysha Hayes Attending Provider: Morgan Conner Other Providers: Henok Martinez MD ; Veronica Horowitz MD ; Jeancarlos Paulson MD
== END 2018-11-04 09:07 | disposition home or self-care (01) ==
LOC: PHED 14:38 → PHEDA 18:30 → PH3 20:43
PROVIDERS: ADMIT Hospitalist; ATTEND Hospitalist
PROC: COLONOS (2018-11-03 07:09)
PROC: PANENDO (2018-11-03 07:09)